=== PATIENT | female | born 1940 | race Caucasian/White ===

== ENCOUNTER 2016-10-21 09:46 | Outpatient (CLI) | payer MEDICARE, OTHER | END 2016-10-21 09:47 | disposition home or self-care (01) | DX: D49.6 Neoplasm of unspecified behavior of brain (principal); Z86.011 Personal history of benign neoplasm of the brain ==

== ENCOUNTER 2016-12-14 11:50 | Outpatient (CLI) | payer MEDICARE, OTHER ==
[2016-12-14 19:44] LABS: ALBUMIN/GLOBULIN RATIO 1.2 (1.0-2.2); BILIRUBIN,TOTAL 0.6 mg/dL (0.2-1.0); BUN - BLOOD UREA NITROGEN 13 mg/dL (6-20); CALCIUM 9.4 mg/dL (8.5-10.3); CARBON DIOXIDE - CO2 26 mmol/L (21-32); CHLORIDE 105 mmol/L (101-111); CHOL/HDL RATIO 3.4 (<4.4); CHOLESTEROL 249 mg/dL; CREATININE 0.8 mg/dL (0.4-1.0); GFR - MDRD 70 (>89); GLUCOSE 98 mg/dL (70-100); HDL CHOLESTEROL 74 mg/dL; LDL/HDL RATIO 2.2 (<4.4); POTASSIUM 4.2 mmol/L (3.5-5.0); SODIUM 139 mmol/L (135-145); TOTAL PROTEIN 7.1 g/dL (6.7-8.2); TRIGLYCERIDES 60 mg/dL; VLDL CHOLESTEROL 12 mg/dL
[2016-12-14 19:52] LABS: BASOPHILS % (AUTO) 0.5 %; EOSINOPHILS % (AUTO) 0.4 %; HCT - HEMATOCRIT 37.3 % (37.0-47.0); HGB - HEMOGLOBIN 12.2 g/dL (12.0-16.0); LYMPHOCYTES # (AUTO) 2.3 10^3/uL (1.5-3.5); LYMPHOCYTES % (AUTO) 31.4 %; MEAN CORPUSCULAR HEMOGLOBIN 29.7 pg (27.0-31.0); MEAN CORPUSCULAR HGB CONC 32.7 g/dL (32.0-36.0); MEAN CORPUSCULAR VOLUME 90.9 fL (81.0-99.0); MEAN PLATELET VOLUME 10.2 fL (7.9-10.8); MONOCYTES # (AUTO) 0.5 10^3/uL (0.0-1.0); MONOCYTES % (AUTO) 7.1 %; NEUTROPHILS # (AUTO) 4.4 10^3/uL (1.5-6.6); NEUTROPHILS % (AUTO) 60.6 %; RED BLOOD COUNT 4.11 10^6/uL (4.20-5.40); RED CELL DISTRIBUTION WIDTH 12.9 % (12.0-15.0); UNCORRECTED WHITE BLOOD COUNT 7.2 x10^3/uL; WHITE BLOOD COUNT 7.2 x10^3/uL (4.8-10.8)
[2016-12-14 20:08] LABS: THYROID STIMULATING HORMONE 1.09 uIU/mL (0.34-5.60)
== END 2016-12-14 23:59 | disposition home or self-care (01) ==
LOC: LAB.WCP 11:50
PROVIDERS: ATTEND Family Medicine
DX: I10 Essential (primary) hypertension (principal); E78.5 Hyperlipidemia, unspecified; E03.9 Hypothyroidism, unspecified
CPT/HCPCS: 36415; 80053; 80061; 84439; 84443; 84481; 85025

== ENCOUNTER 2016-12-16 12:14 | Outpatient (CLI) | payer OTHER ==
--- NOTE | 2016-12-16 20:45 | Ultrasound Report ---
THYROID ULTRASOUND: 12/16/2016 The patient has hypothyroidism and anterior neck pain. TECHNIQUE: Real-time scanning was performed with primary care sales representative static images obtained. FINDINGS: Right lobe of the thyroid measures 3.3 cm x 1.3 cm x 0.9 cm for a volume of 2 mL. Left lo be of the thyroid measures 3.7 cm x 0.9 cm x 1.0 cm for a volume of 1.74 mL. Thyroid isthmus measure s 0.6 cm. Thyroid gland shows no significant abnormality. Thyroid shows no nodules. Thyroid has no rmal vascularity. Its size is slightly smaller than usually noted, but still within normal limits. IMPRESSION: NO SIGNIFICANT ABNORMALITY. JOB #: [id number] EXT JOB #:[id number]
== END 2016-12-16 12:15 | disposition home or self-care (01) ==
LOC: DI 12:14
PROVIDERS: ATTEND Family Medicine
DX: E03.9 Hypothyroidism, unspecified (principal)
CPT/HCPCS: 76536

== ENCOUNTER 2017-10-31 08:00 | Outpatient (CLI) | payer MEDICARE | END 2017-10-31 08:01 | disposition home or self-care (01) | LOC: LAB.WCP 08:00 | PROVIDERS: ATTEND Physician Assistant Medical | DX: J11.89 Influenza due to unidentified influenza virus with other manifestations (principal) | CPT/HCPCS: 87275; 87276 ==

== ENCOUNTER 2017-11-03 14:29 | Outpatient (CLI) | payer MEDICARE ==
--- NOTE | 2017-11-04 09:19 | XRAY Report ---
TWO VIEW CHEST: 11/03/2017 CLINICAL INDICATION: Influenza. COMPARISON: 04/29/2015. FINDINGS: Frontal and lateral views of the chest demonstrate a normal cardiac silhouette. The lungs are clear. No effusion or pneumothorax is present. IMPRESSION: NORMAL CHEST, UNCHANGED. TD: 11/04/2017 09:18
== END 2017-11-03 14:30 | disposition home or self-care (01) ==
LOC: DI 14:29
PROVIDERS: ATTEND Physician Assistant Medical
DX: J11.89 Influenza due to unidentified influenza virus with other manifestations (principal)
CPT/HCPCS: 71046

== ENCOUNTER 2017-12-20 12:44 | Outpatient (CLI) | payer MEDICARE ==
--- NOTE | 2017-12-20 14:38 | XRAY Report ---
THREE VIEW CERVICAL SPINE: 12/20/2017 CLINICAL INDICATION: Chronic neck pain. FINDINGS: AP, lateral, odontoid views of the cervical spine demonstrate degenerative disk disease, worst at C5-6. There is no evidence of acute fracture. The prevertebral soft tissues are unremarkable. IMPRESSION: DEGENERATIVE DISK DISEASE, WORST AT C5-6. TD: 12/20/2017 14:30
--- NOTE | 2017-12-20 14:38 | XRAY Report ---
THREE VIEW BILATERAL KNEES: 12/20/2017 CLINICAL INDICATION: Pain. FINDINGS: AP, lateral, sunrise views of the bilateral knees demonstrate mild bilateral osteoarthritis, with small osteophytes. There is no evidence of fracture or dislocation. A moderate right effusion is present. No left effusion is seen. IMPRESSION: MILD OSTEOARTHRITIS BILATERALLY. MODERATE RIGHT EFFUSION. TD: 12/20/2017 14:31
== END 2017-12-20 12:45 | disposition home or self-care (01) ==
LOC: DI 12:44
PROVIDERS: ATTEND Physician Assistant Medical
DX: M50.30 Other cervical disc degeneration, unspecified cervical region (principal); M17.0 Bilateral primary osteoarthritis of knee; M25.461 Effusion, right knee
CPT/HCPCS: 72040

== ENCOUNTER 2018-02-09 08:16 | Outpatient (CLI) | payer MEDICARE ==
[2018-02-09 08:40] LABS: BASOPHILS % (AUTO) 0.4 %; EOSINOPHILS # (AUTO) 0.1 10^3/uL (0.0-0.7); EOSINOPHILS % (AUTO) 2.2 %; HGB - HEMOGLOBIN 12.8 g/dL (12.0-16.0); LYMPHOCYTES # (AUTO) 2.1 10^3/uL (1.5-3.5); MEAN CORPUSCULAR HEMOGLOBIN 30.5 pg (27.0-31.0); MEAN CORPUSCULAR HGB CONC 33.3 g/dL (32.0-36.0); MEAN CORPUSCULAR VOLUME 91.7 fL (81.0-99.0); MEAN PLATELET VOLUME 9.3 fL (7.9-10.8); MONOCYTES # (AUTO) 0.3 10^3/uL (0.0-1.0); MONOCYTES % (AUTO) 6.5 %; NEUTROPHILS # (AUTO) 2.1 10^3/uL (1.5-6.6); NEUTROPHILS % (AUTO) 44.9 %; PLT - PLATELET COUNT 217 10^3/uL (130-450); RED BLOOD COUNT 4.19 10^6/uL (4.20-5.40); RED CELL DISTRIBUTION WIDTH 12.6 % (12.0-15.0); WHITE BLOOD COUNT 4.7 x10^3/uL (4.8-10.8)
[2018-02-09 09:01] LABS: ALBUMIN 4.2 g/dL (3.2-5.5); ALBUMIN/GLOBULIN RATIO 1.4 (1.0-2.2); ALKALINE PHOSPHATASE 56 IU/L (42-121); ALT ALANINE AMINOTRANSFERASE 21 IU/L (10-60); AST ASPARTATE AMINOTRANSFERASE 22 IU/L (10-42); BILIRUBIN,TOTAL 0.8 mg/dL (0.2-1.0); BUN - BLOOD UREA NITROGEN 18 mg/dL (6-20); CALCIUM 9.3 mg/dL (8.5-10.3); CARBON DIOXIDE - CO2 27 mmol/L (21-32); CHLORIDE 105 mmol/L (101-111); CHOL/HDL RATIO 3.6 (<4.4); CHOLESTEROL 252 mg/dL; CREATININE 0.8 mg/dL (0.4-1.0); GFR - MDRD 70 (>89); GLUCOSE 109 mg/dL (70-100); HDL CHOLESTEROL 70 mg/dL; LDL CHOLESTEROL,CALCULATED 169 mg/dL; LDL/HDL RATIO 2.4 (<4.4); SODIUM 138 mmol/L (135-145); TOTAL PROTEIN 7.2 g/dL (6.7-8.2); VLDL CHOLESTEROL 13 mg/dL
== END 2018-02-09 08:17 | disposition home or self-care (01) ==
LOC: LAB 08:16
PROVIDERS: ATTEND Physician Assistant Medical
DX: E78.5 Hyperlipidemia, unspecified (principal); E03.9 Hypothyroidism, unspecified; I10 Essential (primary) hypertension
CPT/HCPCS: 36415; 80053; 80061; 83721; 84443; 85025

== ENCOUNTER 2018-02-17 07:50 | Outpatient (CLI) | payer MEDICARE ==
--- NOTE | 2018-02-17 19:28 | MRI Report ---
Procedure Date: 02/17/2018 Accession Number: [id number] / [id number] Procedure: MRI - Cervical Spine W/O CPT Code: FULL RESULT: EXAM: MRI CERVICAL SPINE WITHOUT CONTRAST EXAM DATE: 02/17/2018 08:34 AM. CLINICAL HISTORY: Neck pain, chronic. COMPARISONS: Cervical spine 3 views 12/20/2017. TECHNIQUE: Multiplanar, multisequence T1-weighted and fluid-sensitive sequences of the cervical spine without contrast. Other: None. FINDINGS: Alignment: 1. Anterolisthesis 3 mm C4 on C5. 2. Retrolisthesis 3 mm C5 on C6. Neurologic Structures: The visualized posterior fossa structures are unremarkable. No signal abnormality in the visualized spinal cord. Bone Marrow: No gross fractures or bone lesions. No marrow edema. Interspace Levels/Facets: C1-C2: Severe right C1-C2 apophyseal joint arthrosis. C2-C3: Interbody fusion. Facet joint ankylosis. Negative for spinal canal stenosis or foraminal stenosis. C3-C4: Severe bilateral facet joint arthrosis. Severe left foraminal stenosis from facet hypertrophic spurring. Mild right foraminal stenosis from facet hypertrophy. C4-C5: Mild disk degeneration. Severe bilateral facet joint arthrosis. Negative for left foraminal stenosis. Mild right foraminal stenosis from facet hypertrophy. C5-C6: Retrolisthesis 3 mm C5 on C6. Posterior 2 mm disk protrusion. Ligamentum flavum thickening. Central AP spinal canal diameter is 7 mm. There is a mild to moderate central spinal canal stenosis. Severe left foraminal stenosis from Luschka joint hypertrophic spurring. Severe right foraminal stenosis from foraminal 3 mm disk protrusion osteophyte complex. C6-C7: Severe bilateral facet joint arthrosis. The left neural foramen is negative for stenosis. Moderate right foraminal stenosis from anterolisthesis and facet degenerative hypertrophy. C7-T1: Right facet joint ankylosis. Mild left facet joint arthrosis. The intervertebral foramina are negative for stenosis. T1-T2: Severe disk degeneration. Schmorl's node inferior T1 vertebral body endplate. Moderate to severe left foraminal stenosis from facet hypertrophy and disk degeneration. Moderate right foraminal stenosis from spondylosis. Posterior 2 mm disk protrusion. Musculature: Normal. No edema or fatty atrophy. Other: The paravertebral and prevertebral soft tissues are normal. IMPRESSION: 1. Severe right C2-C3 facet joint arthrosis. 2. The spinal cord from the cervicomedullary junction to T3 is negative for signal abnormality. 3. Mild to moderate central spinal canal stenosis from 3 mm retrolisthesis C5 on C6, 2 mm posterior disk protrusion and ligamentum flavum thickening. 4. Severe left foraminal stenosis from Luschka joint hypertrophic spurring and severe right foraminal stenosis from 3 mm foraminal disk protrusion osteophyte complex. 5. Severe left foraminal stenosis C3-C4 from facet hypertrophic spurring. 6. Moderate to severe left and moderate right T1-T2 foraminal stenosis from spondylosis. 7. Anterolisthesis 3 mm C4 on C5. RADIA
== END 2018-02-17 07:51 | disposition home or self-care (01) ==
LOC: DI 07:50
PROVIDERS: ATTEND Physician Assistant Medical
DX: M47.892 Other spondylosis, cervical region (principal); M43.22 Fusion of spine, cervical region; M50.321 Other cervical disc degeneration at C4-C5 level; M50.222 Other cervical disc displacement at C5-C6 level; M51.34 Other intervertebral disc degeneration, thoracic region; M51.24 Other intervertebral disc displacement, thoracic region; M48.02 Spinal stenosis, cervical region; M43.12 Spondylolisthesis, cervical region
CPT/HCPCS: 72141

== ENCOUNTER 2018-02-21 15:21 | Outpatient (CLI) | payer MEDICARE ==
--- NOTE | 2018-02-22 13:14 | Ultrasound Report ---
Procedure Date: 02/21/2018 Accession Number: [id number] / [id number] Procedure: US - Carotid Doppler Complete CPT Code: FULL RESULT: EXAM: BILATERAL CAROTID AND VERTEBRAL ARTERY DUPLEX DOPPLER ULTRASOUND: EXAM DATE: 02/21/2018 04:48 PM CLINICAL HISTORY: Carotid artery stenosis. COMPARISON: Carotid ultrasound 07/20/2010 performed for abnormal life scan. TECHNIQUE: Grayscale imaging, color Doppler, and duplex spectral Doppler were used to evaluate the carotid and vertebral arteries bilaterally. Static images were obtained. FINDINGS: No significant plaque is identified in the right or left common or internal carotid arteries. Normal antegrade flow is present in bilateral vertebral arteries. VELOCITIES (cm/sec): Right: CCA Prox: PSV 54 cm/sec. CCA Dist: PSV 48 cm/sec, EDV 17 cm/sec. ECA: PSV 48 cm/sec. Bulb: PSV 39 cm/sec, EDV 12 cm/sec, ICA/CCA ratio 0.81. ICA Prox: PSV 64 cm/sec, EDV 20 cm/sec, ICA/CCA ratio 1.33. ICA Mid: PSV 89 cm/sec, EDV 26 cm/sec, ICA/CCA ratio 1.85. ICA Dist: PSV 116 cm/sec, EDV 30 cm/sec, ICA/CCA ratio 2.42. Vertebral Artery: PSV 37 cm/sec. RVA flow direction: Antegrade. Left: CCA Prox: PSV 95 cm/sec. CCA Dist: PSV 59 cm/sec, EDV 18 cm/sec. ECA: PSV 62 cm/sec. Bulb: PSV 51 cm/sec, EDV 17 cm/sec, ICA/CCA ratio 0.86. ICA Prox: PSV 80 cm/sec, EDV 33 cm/sec, ICA/CCA ratio 1.36. ICA Mid: PSV 167 cm/sec, EDV 40 cm/sec, ICA/CCA ratio 2.83. ICA Dist: PSV 90 cm/sec, EDV 26 cm/sec, ICA/CCA ratio 1.53. Vertebral Artery: PSV 42 cm/sec. RVA flow direction: Antegrade. ICA diameter stenosis: Right: <50% by velocity and <70% by NASCET criteria. Left: <50% by velocity and <70% by NASCET criteria. IMPRESSION: 1. No significant bilateral carotid artery plaquing. 2. In the right carotid artery there are no elevated carotid artery velocities to suggest hemodynamically significant stenosis. 3. Left mid ICA peak systolic velocity 167 cm/sec can be seen with 50% to 69% stenosis; however, no significant plaque was demonstrated on grayscale images. This velocity may be related to tortuosity, rather than stenosis. 4. Normal antegrade flow is present in bilateral vertebral arteries. General Recommendations: Stenosis =50% ICA - Follow-up ultrasound 6-12 months Stenosis <50% ICA - High Risk Patient with plaque - Follow-up ultrasound 1-2 years Normal Study but High Risk Patient - Follow-up ultrasound 3-5 years Management recommendations and diagnostic criteria are based on current IAC endorsed standards in Carotid Artery Stenosis: Grayscale and Doppler Ultrasound Diagnosis. Validated velocity measurements with angiographic measurements and velocity criteria are extrapolated from diameter data as defined by the Society of Radiologists in Ultrasound Consensus Conference Radiology 2003; 229;340-346. RADIA
== END 2018-02-21 15:22 | disposition home or self-care (01) ==
LOC: DI 15:21
PROVIDERS: ATTEND Physician Assistant Medical
DX: I65.29 Occlusion and stenosis of unspecified carotid artery (principal)
CPT/HCPCS: 93880

== ENCOUNTER 2018-08-31 08:26 | Outpatient (CLI) | payer MEDICARE ==
[2018-08-31 08:41] LABS: BASOPHILS % (AUTO) 0.6 %; EOSINOPHILS # (AUTO) 0.1 10^3/uL (0.0-0.7); EOSINOPHILS % (AUTO) 1.9 %; HGB - HEMOGLOBIN 13.1 g/dL (12.0-16.0); LYMPHOCYTES % (AUTO) 38.8 %; MEAN CORPUSCULAR HEMOGLOBIN 30.8 pg (27.0-31.0); MEAN CORPUSCULAR HGB CONC 34.4 g/dL (32.0-36.0); MEAN CORPUSCULAR VOLUME 89.6 fL (81.0-99.0); MEAN PLATELET VOLUME 8.7 fL (7.9-10.8); MONOCYTES # (AUTO) 0.4 10^3/uL (0.0-1.0); MONOCYTES % (AUTO) 7.5 %; NEUTROPHILS # (AUTO) 2.7 10^3/uL (1.5-6.6); NEUTROPHILS % (AUTO) 51.2 %; PLT - PLATELET COUNT 207 10^3/uL (130-450); RED BLOOD COUNT 4.24 10^6/uL (4.20-5.40); RED CELL DISTRIBUTION WIDTH 13.2 % (12.0-15.0); WHITE BLOOD COUNT 5.2 x10^3/uL (4.8-10.8)
[2018-08-31 09:03] LABS: ALBUMIN 4.2 g/dL (3.2-5.5); ALBUMIN/GLOBULIN RATIO 1.3 (1.0-2.2); ALKALINE PHOSPHATASE 59 IU/L (42-121); ALT ALANINE AMINOTRANSFERASE 22 IU/L (10-60); AST ASPARTATE AMINOTRANSFERASE 22 IU/L (10-42); BILIRUBIN,TOTAL 0.7 mg/dL (0.2-1.0); BUN - BLOOD UREA NITROGEN 16 mg/dL (6-20); CALCIUM 9.5 mg/dL (8.5-10.3); CARBON DIOXIDE - CO2 29 mmol/L (21-32); CHLORIDE 105 mmol/L (101-111); CHOL/HDL RATIO 3.2 (<4.4); CHOLESTEROL 262 mg/dL; CREATININE 0.7 mg/dL (0.4-1.0); GFR - MDRD 81 (>89); GLUCOSE 109 mg/dL (70-100); HDL CHOLESTEROL 81 mg/dL; LDL CHOLESTEROL,CALCULATED 171 mg/dL; LDL/HDL RATIO 2.1 (<4.4); SODIUM 142 mmol/L (135-145); TOTAL PROTEIN 7.4 g/dL (6.7-8.2); VLDL CHOLESTEROL 10 mg/dL
== END 2018-08-31 08:27 | disposition home or self-care (01) ==
LOC: LAB 08:26
PROVIDERS: ATTEND Physician Assistant Medical
DX: E78.5 Hyperlipidemia, unspecified (principal); E03.9 Hypothyroidism, unspecified; K21.9 Gastro-esophageal reflux disease without esophagitis
CPT/HCPCS: 36415; 80053; 80061; 83721; 84443; 85025

== ENCOUNTER 2019-04-11 15:48 | Outpatient (CLI) | payer MEDICARE ==
--- NOTE | 2019-04-12 09:50 | MRI Report ---
Reason: DEGENERATIVE DISC DISEASE CERVICAL SPINE Procedure Date: 04/11/2019 Accession Number: [id number] / [id number] Procedure: MRI - Cervical Spine W/O CPT Code: FULL RESULT: EXAM: MRI CERVICAL SPINE WITHOUT CONTRAST EXAM DATE: 04/11/2019 04:27 PM. CLINICAL HISTORY: 79-year-old female. DEGENERATIVE DISC DISEASE CERVICAL SPINE. COMPARISONS: MR cervical spine 02/17/2018 TECHNIQUE: Multiplanar, multisequence T1-weighted and fluid-sensitive sequences of the cervical spine without contrast. Other: None. FINDINGS: Neurologic Structures: The visualized posterior fossa structures are unremarkable. No signal abnormality in the visualized spinal cord. Alignment: Grade 1 anterolisthesis C4 on C5 measuring 4 mm. Grade 1 retrolisthesis C5 on C6 measuring 5 mm. Grade 1 anterolisthesis C6 on C7 measuring 2 mm. Bone Marrow: No gross fractures or bone lesions. No marrow edema. Interspace Levels/Facets: C1-C2: Moderate degenerative changes of the atlantodental joint, including likely a pseudo-pannus. No significant narrowing. C2-C3: Interbody fusion and facet joint ankylosis. No significant central canal or foraminal narrowing. C3-C4: Moderate bilateral facet arthropathy. No significant central canal narrowing. Moderate to severe left and mild right foraminal narrowing. No significant interval progression. C4-C5: Small posterior disk osteophyte complex. Moderate bilateral facet arthropathy. No central canal narrowing. Mild right foraminal narrowing. No left foraminal narrowing. No interval progression. C5-C6: Moderate to severe describe loss and desiccation. Large posterior disk osteophyte complex. Severe bilateral uncovertebral spurring. Mild bilateral facet arthropathy. Moderate to severe central canal narrowing, similar to prior. Severe left and moderate to severe right foraminal narrowing. No interval progression. C6-C7: Small posterior disk osteophyte complex. Moderate bilateral facet arthropathy. Mild central canal narrowing. No foraminal narrowing. No interval progression. C7-T1: Unremarkable. Musculature: Normal. No edema or fatty atrophy. Other: The paravertebral and prevertebral soft tissues are normal. IMPRESSION: 1. Moderate to severe multilevel degenerative spondylosis, as detailed above and summarized below, with no significant interval progression since the prior MRI dated 02/17/2018. No evidence of acute fracture or traumatic subluxation. No cord signal abnormality. 2. C3-C4: No significant central canal narrowing. Moderate to severe left and mild right foraminal narrowing. No significant interval progression. Recommend correlation for left C4 radicular symptoms. 3. C4-C5: No central canal narrowing. Mild right foraminal narrowing. No left foraminal narrowing. No interval progression. 4. C5-C6: Moderate to severe central canal narrowing, similar to prior. Severe left and moderate to severe right foraminal narrowing. No interval progression. Recommend correlation for left greater than right C6 radicular symptoms. 5. C6-C7: Mild central canal narrowing. No foraminal narrowing. No interval progression. RADIA
== END 2019-04-11 15:49 | disposition home or self-care (01) ==
LOC: DI 15:48
PROVIDERS: ATTEND Physician Assistant Medical
DX: M50.322 Other cervical disc degeneration at C5-C6 level (principal); M47.812 Spondylosis without myelopathy or radiculopathy, cervical region; M48.02 Spinal stenosis, cervical region
CPT/HCPCS: 72141

== ENCOUNTER 2019-04-28 13:50 | Emergency (ER) | payer MEDICARE ==
--- NOTE | 2019-04-28 15:32 | ED Physician Documentation ---
History of Present Illness - Stated complaint Stated Complaint: Choking/food feeling stuck - Chief complaint Chief Complaint: Resp - History obtained from History obtained from: Patient - History of Present Illness Pain level max: 0 Pain level now: 0 - Additonal information Additional information: 79-year-old female states that it feels like there is a shelf on the left side of her throat. She states that for the past 6 months she has had in her mid episodes on food. This is happened 4-5 times. She has not talked to her doctor about this. Worse with eating. Nothing makes it better. Is not particularly worse today. She states she had a normal EGD and colonoscopy 6 years ago Review of Systems Constitutional: denies: Fever GI: denies: Vomiting, Diarrhea Skin: denies: Rash Musculoskeletal: denies: Neck pain, Back pain PD PAST MEDICAL HISTORY - Past Medical History Past Medical History: Yes Endocrine/Autoimmune: HyPOthyroidism - Past Surgical History Past Surgical History: Yes General: Appendectomy /RN PRIMARY CARE: Hysterectomy, Oophrectomy Neuro: Craniotomy HEENT: Tonsil/Adenoidectomy - Present Medications Home Medications: Ambulatory Orders Medication Instructions Recorded Confirmed Levothyroxine [Synthroid] 75 mcg PO DAILY 01/18/14 10/16/14 - Allergies Allergies/Adverse Reactions: Allergies Allergy/AdvReac Type Severity Reaction Status Date / Time No Known Drug Allergies Allergy Verified 01/18/14 15:24 - Social History Does the pt smoke?: No Smoking Status: Never smoker Does the pt drink ETOH?: No Does the pt have substance abuse?: No - Immunizations Immunizations are current?: Yes - POLST Patient has POLST: No PD ED PE NORMAL - Vitals Vital signs reviewed: Yes - General General: Alert and oriented X 3, No acute distress - HEENT HEENT: PERRL, Ears normal, Moist mucous membranes, Pharynx benign - Neck Neck: Supple, no meningeal sign - Cardiac Cardiac: RRR, Strong equal pulses - Respiratory Respiratory: No respiratory distress, Clear bilaterally - Abdomen Abdomen: Soft, Non tender, Non distended - Derm Derm: Warm and dry - Neuro Neuro: Alert and oriented X 3 - Psych Psych: Normal mood, Normal affect Results - Vitals Vitals: Vital Signs - 24 hr 04/28/19 13:58 Temperature 37.0 C Heart Rate 81 Respiratory 20 Rate Blood Pressure 155/71 H O2 Saturation 97 Oxygen O2 Source Room air PD MEDICAL DECISION MAKING - ED course Complexity details: considered differential, d/w patient ED course: Normal examination today. Possible Schatzki's rings? Possible outpouching near the vallecula? We will have her follow-up with her doctor for referral for EGD. Patient counseled regarding signs and symptoms for which I believe and urgent re-evaluation would be necessary. Patient with good understanding of and agreement to plan and is comfortable going home at this time This document was made in part using voice recognition software. While efforts are made to proofread this document, sound alike and grammatical errors may occur. Departure - Departure Disposition: 01 Home, Self Care Clinical Impression: Choking due to food in larynx Qualifiers: Encounter type: initial encounter Qualified Code(s): T17.320A - Food in larynx causing asphyxiation, initial encounter Condition: Good Instructions: ED Choking Spell Follow-Up: Analia Rivera PA-C [Primary Care Provider] - Within 1 week Comments: Follow-up with Lexi Rivera for referral to GI or general surgery for an endoscopy. You should have them look at your posterior oropharynx and esophagus. It is possible that you have rings that are causing you to have difficulty swallowing or outpouchings. Return if you worsen.
[2019-04-28 15:42] VITALS: BP 161/92
== END 2019-04-28 15:58 | disposition home or self-care (01) ==
LOC: ED 13:50
DX: T17.320A Food in larynx causing asphyxiation, initial encounter (principal); X58.XXXA Exposure to other specified factors, initial encounter
CPT/HCPCS: 99282; 99283

== ENCOUNTER 2019-05-04 11:47 | Outpatient (CLI) | payer MEDICARE ==
[2019-05-04 12:31] LABS: CREATININE 0.6 mg/dL (0.4-1.0)
[2019-05-04] MEDS ORDERED: IOVERSOL 320 100 ML VIAL IVP ONE ×2 (12:43→13:12)
--- NOTE | 2019-05-04 13:45 | CT Report ---
Reason: DYSPHAGIA,VOICE CHANGES Procedure Date: 05/04/2019 Accession Number: [id number] / [id number] Procedure: CT - SOFT TISSUE NECK W CPT Code: FULL RESULT: EXAM: CT SOFT TISSUE NECK WITH CONTRAST. EXAM DATE: 05/04/2019 12:54 PM. HISTORY: Dysphagia, voice changes. COMPARISONS: Accompanied CT study chest, plain film series soft tissue neck ; prior MRI cervical spine done 04/11/2019. TECHNIQUE: Routine soft tissue neck CT protocol with contrast. Reconstructions: Coronal and sagittal. IV contrast: 80 cc Optiray 320. In accordance with CT protocol optimization, one or more of the following dose reduction techniques were utilized for this exam: automated exposure control, adjustment of mA and/or KV based on patient size, or use of iterative reconstructive technique. Findings: Relevant images are indicated (image number, series number). Limited evaluation intrarenal contents are unremarkable, basal cisterns are patent. Orbital contents negative. Patient partially edentulous. Apical cyst present left mandible first molar (18, 14). Paranasal sinuses, mastoid air cells appear clear. Skull base intact. Suprahyoid neck: No suspicious mass, fluid collection, no suspicious adenopathy. Airway patent, epiglottis negative, oral cavity unremarkable, partly degraded by dental artifact. Infrahyoid neck: No suspicious mass, fluid collection, no suspicious adenopathy. Pyriform sinuses are clear, aryepiglottic folds, vestibule appear unremarkable. Thyroid not enlarged, airway patent. Limited superior mediastinum unremarkable. Limited evaluation lung apices are unremarkable. Advanced focal cervical spondylosis C4-C5, worse at the C5-C6 level. No suspicious bony lesions. Impressions: 1. No suspicious mass, fluid collection, no suspicious adenopathy of the neck. 2. Advanced focal cervical spondylosis worse at the C5-C6 level. 3. Apical cyst first molar left mandible. RADIA The call report notification system was initiated by Dr. Hilario Sánchez at 01:43 PM on 05/04/2019.
--- NOTE | 2019-05-04 13:49 | CT Report ---
Reason: DYSPHAGIA,VOICE CHANGES Procedure Date: 05/04/2019 Accession Number: [id number] / [id number] Procedure: CT - CHEST W CPT Code: FULL RESULT: EXAM: CT CHEST EXAM DATE: 05/04/2019 01:10 PM. CLINICAL HISTORY: DYSPHAGIA,VOICE CHANGES. COMPARISONS: None. TECHNIQUE: Routine helical CT imaging was performed through the chest. IV contrast: 80 cc Optiray 320. Reconstructions: Coronal and sagittal. In accordance with CT protocol optimization, one or more of the following dose reduction techniques were utilized for this exam: automated exposure control, adjustment of mA and/or KV based on patient size, or use of iterative reconstructive technique. FINDINGS: Lungs/Pleura: Right apical groundglass nodule measuring 3 mm on series 4 image 60. Fine nodularity generally. Mild bronchiectasis. No suspicious lesion, consolidation, effusion, or pneumothorax. Mediastinum: Normal heart size. Small pericardial effusion measuring about 6 mm. Mild prominence of ascending thoracic aorta measuring 3.6 cm. At least one vessel coronary artery calcifications. No lymphadenopathy. Bones: Unremarkable. Visualized Abdomen: Unremarkable. Other: None. IMPRESSION: 1. Tiny right apical groundglass nodule; further follow-up not indicated radiographically, per Fleischner Society guidelines. 2. Mild bronchiectasis. 3. Small pericardial effusion and other chronic or incidental findings. RADIA The call report notification system was initiated by Dr. Murtaza Sierra at 01:39 PM on 05/04/2019. The above call report findings were discussed with Dr. Catalan by Dr. Murtaza Sierra at 01:48 PM on 05/04/2019.
== END 2019-05-04 11:48 | disposition home or self-care (01) ==
LOC: LAB 11:47 → DI 11:48
PROVIDERS: ATTEND Surgery
DX: R13.10 Dysphagia, unspecified (principal); R49.9 Unspecified voice and resonance disorder; K04.8 Radicular cyst; M47.812 Spondylosis without myelopathy or radiculopathy, cervical region; I31.3 Pericardial effusion (noninflammatory); J47.9 Bronchiectasis, uncomplicated
CPT/HCPCS: 36415; 70491; 71260; 82565; Q9967

== ENCOUNTER 2019-05-16 07:41 | Outpatient (CLI) | payer MEDICARE | END 2019-05-16 07:42 | disposition home or self-care (01) | LOC: DI 07:41 | PROVIDERS: ATTEND Physician Assistant Medical | DX: I31.3 Pericardial effusion (noninflammatory) (principal); I35.1 Nonrheumatic aortic (valve) insufficiency | CPT/HCPCS: 93306 ==

== ENCOUNTER 2019-05-31 08:34 | Outpatient (CLI) | payer MEDICARE ==
[2019-05-31 09:20] LABS: ALBUMIN/GLOBULIN RATIO 1.2 (1.0-2.2); ALKALINE PHOSPHATASE 57 IU/L (42-121); ALT ALANINE AMINOTRANSFERASE 21 IU/L (10-60); AST ASPARTATE AMINOTRANSFERASE 21 IU/L (10-42); BILIRUBIN,TOTAL 0.8 mg/dL (0.2-1.0); BUN - BLOOD UREA NITROGEN 15 mg/dL (6-20); CALCIUM 9.2 mg/dL (8.5-10.3); CARBON DIOXIDE - CO2 28 mmol/L (21-32); CHLORIDE 105 mmol/L (101-111); CHOL/HDL RATIO 3.6 (<4.4); CHOLESTEROL 264 mg/dL; CREATININE 0.7 mg/dL (0.4-1.0); GFR - MDRD 81 (>89); GLUCOSE 107 mg/dL (70-100); HDL CHOLESTEROL 73 mg/dL; LDL CHOLESTEROL,CALCULATED 181 mg/dL; LDL/HDL RATIO 2.5 (<4.4); SODIUM 139 mmol/L (135-145); TOTAL PROTEIN 7.3 g/dL (6.7-8.2); VLDL CHOLESTEROL 10 mg/dL
== END 2019-05-31 08:35 | disposition home or self-care (01) ==
LOC: LAB 08:34
PROVIDERS: ATTEND Physician Assistant Medical
DX: Z79.899 Other long term (current) drug therapy (principal); E78.5 Hyperlipidemia, unspecified
CPT/HCPCS: 36415; 80053; 80061; 83721

== ENCOUNTER 2019-06-06 07:37 | Day surgery (SDC) | payer MEDICARE ==
[2019-06-06] MEDS ORDERED: fentaNYL 100 MCG/2 ML VIAL IVP ONE (07:38)
[2019-06-06] MEDS ORDERED: MIDAZOLAM 2 MG/2 ML VIAL IVP ONE (07:38)
[2019-06-06] MEDS ORDERED: SCOPOLAMINE PATCH TOP ONE (08:08)
[2019-06-06] MEDS ORDERED: LACTATED RINGERS 1,000 ML IV ONE ×2 (08:11→10:21)
[2019-06-06] MEDS ORDERED: LIDO GARGLE 30 ML BOTTLE ONE (09:28)
[2019-06-06 10:48] VITALS: BP 154/82
== END 2019-06-06 07:38 | disposition home or self-care (01) ==
LOC: SDS 07:37
PROVIDERS: ATTEND Surgery
PROC: 0DB78ZX Excision of Stomach, Pylorus, Via Natural or Artificial Opening Endoscopic, Diagnostic (ICD-10-PCS; 2019-06-06)
PROC: 0DB58ZX Excision of Esophagus, Via Natural or Artificial Opening Endoscopic, Diagnostic (ICD-10-PCS; 2019-06-06)
PROC: 0DB98ZX Excision of Duodenum, Via Natural or Artificial Opening Endoscopic, Diagnostic (ICD-10-PCS; principal; 2019-06-06 09:00)
DX: R13.10 Dysphagia, unspecified (principal); K21.9 Gastro-esophageal reflux disease without esophagitis; K29.50 Unspecified chronic gastritis without bleeding; K44.9 Diaphragmatic hernia without obstruction or gangrene; K22.9 Disease of esophagus, unspecified; I10 Essential (primary) hypertension; I73.9 Peripheral vascular disease, unspecified
CPT/HCPCS: 43239; 88305; A9270; J3490; J7120

== ENCOUNTER 2019-11-22 07:53 | Outpatient (CLI) | payer MEDICARE ==
[2019-11-22 08:08] LABS: BASOPHILS % (AUTO) 0.6 %; EOSINOPHILS # (AUTO) 0.1 10^3/uL (0.0-0.7); EOSINOPHILS % (AUTO) 2.6 %; HGB - HEMOGLOBIN 12.5 g/dL (12.0-16.0); LYMPHOCYTES # (AUTO) 2.6 10^3/uL (1.5-3.5); LYMPHOCYTES % (AUTO) 51.1 %; MEAN CORPUSCULAR HEMOGLOBIN 30.4 pg (27.0-31.0); MEAN CORPUSCULAR VOLUME 92.2 fL (81.0-99.0); MEAN PLATELET VOLUME 10.6 fL (7.9-10.8); MONOCYTES # (AUTO) 0.4 10^3/uL (0.0-1.0); MONOCYTES % (AUTO) 7.8 %; NEUTROPHILS # (AUTO) 1.9 10^3/uL (1.5-6.6); NEUTROPHILS % (AUTO) 37.7 %; PLT - PLATELET COUNT 194 10^3/uL (130-450); RED BLOOD COUNT 4.11 10^6/uL (4.20-5.40); RED CELL DISTRIBUTION WIDTH 12.6 % (12.0-15.0)
[2019-11-22 08:28] LABS: ALBUMIN 4.2 g/dL (3.2-5.5); ALBUMIN/GLOBULIN RATIO 1.4 (1.0-2.2); ALKALINE PHOSPHATASE 67 IU/L (42-121); ALT ALANINE AMINOTRANSFERASE 21 IU/L (10-60); AST ASPARTATE AMINOTRANSFERASE 22 IU/L (10-42); BILIRUBIN,TOTAL 0.4 mg/dL (0.2-1.0); BUN - BLOOD UREA NITROGEN 20 mg/dL (6-20); CALCIUM 9.4 mg/dL (8.5-10.3); CARBON DIOXIDE - CO2 28 mmol/L (21-32); CHLORIDE 106 mmol/L (101-111); CHOL/HDL RATIO 3.9 (<4.4); CHOLESTEROL 276 mg/dL; CREATININE 0.7 mg/dL (0.4-1.0); GLUCOSE 111 mg/dL (70-100); HDL CHOLESTEROL 70 mg/dL; LDL CHOLESTEROL,CALCULATED 197 mg/dL; LDL/HDL RATIO 2.8 (<4.4); SODIUM 141 mmol/L (135-145); TOTAL PROTEIN 7.2 g/dL (6.7-8.2); VLDL CHOLESTEROL 9 mg/dL
[2019-11-22 08:39] LABS: THYROID STIMULATING HORMONE 1.85 uIU/mL (0.34-5.60)
== END 2019-11-22 07:54 | disposition home or self-care (01) ==
LOC: LAB 07:53
PROVIDERS: ATTEND Internal Medicine
DX: R42 Dizziness and giddiness (principal); Z13.6 Encounter for screening for cardiovascular disorders; Z79.899 Other long term (current) drug therapy; E78.5 Hyperlipidemia, unspecified; E03.9 Hypothyroidism, unspecified; R26.89 Other abnormalities of gait and mobility
CPT/HCPCS: 36415; 80053; 80061; 82607; 83721; 84443; 85025

== ENCOUNTER 2020-03-06 17:45 | Emergency (ER) | payer MEDICARE ==
--- NOTE | 2020-03-06 18:00 | ED Physician Documentation ---
PD HPI CHEST PAIN - Stated complaint Stated Complaint: CP/FAST HEART RATE - Chief complaint Chief Complaint: Cardiac - History obtained from History obtained from: Patient - History of Present Illness Timing - onset: Today Timing - onset during: Rest Timing - duration: Hours (few) Timing - details: Gradual onset, Waxing and waning (feeling like heart rhythm is skipping and surging. No dyspnea.) Quality: No: Pressure, Tightness, Sharp Worsened by: No: Inspiration, Movement Associated symptoms: Palpitations. No: Shortness of air, Nausea, Feeling faint / dizzy Similar symptoms before: Has not had sx before Recently seen: Not recently seen Review of Systems Constitutional: denies: Fever, Chills Nose: denies: Rhinorrhea / runny nose, Congestion Throat: denies: Sore throat Respiratory: denies: Cough GI: denies: Abdominal Pain, Vomiting, Diarrhea Skin: denies: Rash, Lesions Musculoskeletal: denies: Extremity swelling Neurologic: denies: Generalized weakness, Near syncope PD PAST MEDICAL HISTORY - Past Medical History Cardiovascular: Valve disorder, Other Respiratory: Other Endocrine/Autoimmune: HyPOthyroidism GI: None : None HEENT: None Psych: None Musculoskeletal: Osteoarthritis, Other Derm: None - Past Surgical History Past Surgical History: Yes General: Appendectomy Ortho: Other /[employer]BER: Hysterectomy, Oophrectomy Neuro: Craniotomy HEENT: Tonsil/Adenoidectomy - Present Medications Home Medications: Ambulatory Orders Medication Instructions Recorded Confirmed Levothyroxine [Synthroid] 75 mcg PO DAILY 01/18/14 06/06/19 Naproxen Sodium [Aleve] 220 mg PO DAILY PRN 06/05/19 06/05/19 Potassium Chloride 10 meq PO DAILY #20 tablet.er 03/06/20 - Allergies Allergies/Adverse Reactions: Allergies Allergy/AdvReac Type Severity Reaction Status Date / Time hydrochlorothiazide Allergy Unknown Verified 03/06/20 17:59 penicillin V Allergy Unknown Verified 03/06/20 17:59 dust mites Allergy Unknown Uncoded 03/06/20 17:59 grassess,hay, wheat Allergy Unknown Uncoded 03/06/20 17:59 molds Allergy Unknown Uncoded 03/06/20 17:59 pet dander Allergy Unknown Uncoded 03/06/20 17:59 - Social History Does the pt smoke?: No Smoking Status: Never smoker Does the pt drink ETOH?: No Does the pt have substance abuse?: No - Immunizations Immunizations are current?: Yes - POLST Patient has POLST: No PD ED PE NORMAL - Vitals Vital signs reviewed: Yes - General General: Alert and oriented X 3, No acute distress (but somewhat anxious), Well developed/nourished - HEENT HEENT: Pharynx benign - Neck Neck: Supple, no meningeal sign, No adenopathy - Cardiac Cardiac: RRR, Other (1/6 murmur left chest radiating to back. ) - Respiratory Respiratory: Clear bilaterally - Abdomen Abdomen: Soft, Non tender - Derm Derm: Normal color, Warm and dry - Extremities Extremities: No deformity, No tenderness to palpate, No edema, No calf tenderness / cord - Neuro Neuro: Alert and oriented X 3, No motor deficit, Normal speech Results - Vitals Vitals: Vital Signs - 24 hr 03/06/20 03/06/20 03/06/20 17:55 18:44 19:02 Temperature 36.9 C Heart Rate 90 74 71 Respiratory 20 16 18 Rate Blood Pressure 168/102 H 158/66 H 179/66 H O2 Saturation 97 98 100 03/06/20 19:30 Temperature Heart Rate 75 Respiratory 16 Rate Blood Pressure 180/68 H O2 Saturation 99 Oxygen O2 Source Room air - EKG (time done) 17:55 Rate: Rate (enter#) (86) Rhythm: NSR, Other (frequent PVCs) Intervals: Normal NM QRS: Normal Ischemia: Normal ST segments. No: ST elevation c/w ischemia, ST depression - Labs Labs: Laboratory Tests 03/06/20 03/06/20 03/06/20 18:00 18:00 18:00 WBC 7.1 RBC 4.02 L Hgb 12.5 Hct 36.9 L MCV 91.8 MCH 31.1 H MCHC 33.9 RDW 12.4 Plt Count 213 MPV 10.6 Neut # (Auto) 3.4 Lymph # (Auto) 3.2 [place] # (Auto) 0.4 Eos # (Auto) 0.1 Baso # (Auto) 0.0 Absolute Nucleated RBC 0.00 Nucleated RBC % 0.0 Sodium 140 Potassium 3.8 Chloride 101 Carbon Dioxide 28 Anion Gap 11.0 BUN 17 Creatinine 0.9 Estimated GFR (MDRD) 60 L Glucose 138 H Calcium 9.8 Magnesium Total Bilirubin 0.5 AST 36 ALT 19 Alkaline Phosphatase 65 Troponin I High Sens 4.4 Total Protein 7.5 Albumin 4.2 Globulin 3.3 Albumin/Globulin Ratio 1.3 Lipase 45 TSH Free T4 Free T3 pg/mL 03/06/20 03/06/20 03/06/20 18:00 18:00 18:00 WBC RBC Hgb Hct MCV MCH MCHC RDW Plt Count MPV Neut # (Auto) Lymph # (Auto) [place] # (Auto) Eos # (Auto) Baso # (Auto) Absolute Nucleated RBC Nucleated RBC % Sodium Potassium Chloride Carbon Dioxide Anion Gap BUN Creatinine Estimated GFR (MDRD) Glucose Calcium Magnesium 2.2 Total Bilirubin AST ALT Alkaline Phosphatase Troponin I High Sens Total Protein Albumin Globulin Albumin/Globulin Ratio Lipase TSH < 0.08 L Free T4 1.26 Free T3 pg/mL 3.44 - Rads (name of study) chest xray Radiology: Prelim report reviewed (no acute), See rad report PD MEDICAL DECISION MAKING - ED course Complexity details: considered differential (has feeling of irregularity of heart rhythm, no pain nor dyspnea.), d/w patient Departure - Departure Disposition: 01 Home, Self Care Clinical Impression: PVC's (premature ventricular contractions) Condition: Stable Record reviewed to determine appropriate education?: Yes Instructions: ED Palpitations Follow-Up: Cristina Canela MD [Primary Care Provider] - Prescriptions: Potassium Chloride 10 meq PO DAILY #20 tablet.er Comments: You are having extra beats called PVCs which in and of themselves are benign. They can feel annoying. PVCs are sometimes indicative of metabolic irritation such as electrolyte abnormality, thyroid abnormalities, or just general stress/adrenaline. We can add a potassium supplement to raise your potassium level 2 more solidly in the middle of the normal range. Stay well-hydrated. Otherwise the poor sleep and the stress of the noise etc. at your apartment building are likely contributing as well. Have your primary care follow-up on the thyroid test results to see if your current dose is appropriate. Follow-up with your primary care also if the degree of the palpitations continues symptomatically enough. Discharge Date/Time: 03/06/20 19:37
[2020-03-06 18:05] LABS: BASOPHILS % (AUTO) 0.3 %; EOSINOPHILS # (AUTO) 0.1 10^3/uL (0.0-0.7); HGB - HEMOGLOBIN 12.5 g/dL (12.0-16.0); LYMPHOCYTES # (AUTO) 3.2 10^3/uL (1.5-3.5); LYMPHOCYTES % (AUTO) 45.2 %; MEAN CORPUSCULAR HEMOGLOBIN 31.1 pg (27.0-31.0); MEAN CORPUSCULAR HGB CONC 33.9 g/dL (32.0-36.0); MEAN CORPUSCULAR VOLUME 91.8 fL (81.0-99.0); MEAN PLATELET VOLUME 10.6 fL (7.9-10.8); MONOCYTES # (AUTO) 0.4 10^3/uL (0.0-1.0); MONOCYTES % (AUTO) 5.9 %; NEUTROPHILS # (AUTO) 3.4 10^3/uL (1.5-6.6); NEUTROPHILS % (AUTO) 47.5 %; PLT - PLATELET COUNT 213 10^3/uL (130-450); RED BLOOD COUNT 4.02 10^6/uL (4.20-5.40); RED CELL DISTRIBUTION WIDTH 12.4 % (12.0-15.0); WHITE BLOOD COUNT 7.1 x10^3/uL (4.8-10.8)
--- NOTE | 2020-03-06 18:17 | XRAY Report ---
PROCEDURE: Chest 1 View X-Ray INDICATIONS: Chest pain TECHNIQUE: One view of the chest was acquired. COMPARISON: 11/03/2017 FINDINGS: Surgical changes and devices: None. Lungs and pleura: No pleural effusions or pneumothorax. Lungs are clear. Mediastinum: Mediastinal contours appear normal. Heart size is normal. Bones and chest wall: No suspicious bony lesions. Overlying soft tissues appear unremarkable. IMPRESSION: No acute cardiopulmonary pathology. Reviewed by: Joselito Washburn MD on 03/06/2020 5:15 PM AKDT Approved by: Joselito Washburn MD on 03/06/2020 5:15 PM AKDT Station ID: [id number]
[2020-03-06 18:29] LABS: ALBUMIN 4.2 g/dL (3.2-5.5); ALBUMIN/GLOBULIN RATIO 1.3 (1.0-2.2); CALCIUM 9.8 mg/dL (8.5-10.3); CREATININE 0.9 mg/dL (0.4-1.0); TOTAL PROTEIN 7.5 g/dL (6.7-8.2)
[2020-03-06] MEDS ORDERED: LACTATED RINGERS 1,000 ML IV STA (18:29)
[2020-03-06] MEDS ORDERED: MAGNESIUM OXIDE 400 MG TABLET PO STA (18:30)
[2020-03-06] MEDS ORDERED: POTASSIUM CHLORIDE 20 MEQ TABLET PO STA (18:30)
[2020-03-06 18:38] LABS: BILIRUBIN,TOTAL 0.5 mg/dL (0.2-1.0)
[2020-03-06 19:37] VITALS: BP 180/68
[2020-03-06 19:47] LABS: FREE T3 3.44 pg/mL (2.5-3.9)
[2020-03-06 20:08] LABS: FREE T4 (FREE THYROXINE) 1.26 ng/dL (0.58-1.64)
== END 2020-03-06 19:37 | disposition home or self-care (01) ==
LOC: ED 17:45
DX: I49.3 Ventricular premature depolarization (principal); R01.1 Cardiac murmur, unspecified
CPT/HCPCS: 36415; 71045; 80053; 83690; 83735; 84439; 84443; 84481; 84484; 85025; 93005; 96360; 99284; A9270; J7120

== ENCOUNTER 2020-05-08 09:05 | Outpatient (CLI) | payer MEDICARE ==
[2020-05-08 09:43] LABS: CALCIUM 9.3 mg/dL (8.5-10.3); CREATININE 0.6 mg/dL (0.4-1.0)
== END 2020-05-08 09:06 | disposition home or self-care (01) ==
LOC: LAB 09:05
PROVIDERS: ATTEND Internal Medicine
DX: R79.89 Other specified abnormal findings of blood chemistry (principal); R94.6 Abnormal results of thyroid function studies
CPT/HCPCS: 36415; 80048; 84443

== ENCOUNTER 2020-09-19 08:15 | Outpatient (CLI) | payer MEDICARE ==
--- NOTE | 2020-09-22 09:30 | Mammography Report ---
BILATERAL DIGITAL DIAGNOSTIC MAMMOGRAM 3D/2D: 09/19/2020 CLINICAL: Focal left breast pain. Comparison is made to exam dated: 05/07/2010 mammogram - [facility]. There are sc attered fibroglandular elements in both breasts. There is an oval mass with a circumscribed margin and grouped coarse heterogeneous calcifications in the left breast central to the nipple anterior depth. This is increased in size. There also is a new irregular equal density focal asymmetry in the left breast at 5 o'clock posterior depth. This correlates as palpated. Adjacent to this focal asymmetry, there is another adjacent f ocal asymmetry. These lesions are only partially imaged on CC views. No other significant masses, calcifications, or other findings are seen in either breast. IMPRESSION: INCOMPLETE: NEEDS ADDITIONAL IMAGING EVALUATION The oval mass in the left breast central to the nipple anterior depth is indeterminate. An ultrasoun d is recommended. The new irregular equal density focal asymmetry in the left breast at 5 o'clock posterior depth is in determinate. There is no abnormality seen in the left breast to correspond with the palpable abnormality in the up per outer quadrant, however, ultrasound is recommended. This exam was interpreted at Station ID: [id number]. NOTE: For mammograms, a report in lay terms will be sent to the patient. Approximately 15% of breast malignancies will not be visualized mammographically. In the management of a palpable breast mass, a negative mammogram must not discourage biopsy of a clinically suspicious lesion. SUMMARY: Targeted ultrasound is recommended for further evaluation and will be scheduled immediately following this exam. Electronically Signed By: David padilla/[place]:09/19/2020 11:01:37 ACR BI-RADS Category 0: Incomplete 3340F PARENCHYMAL PATTERN: (A) - The breast(s) demonstrate(s) scattered fibroglandular densities. BI-RADS CATEGORY: (0) - 0 Ultrasound [id number] Immediate follow-up LATERALITY: (L)
--- NOTE | 2020-09-22 09:31 | Ultrasound Report ---
LIMITED ULTRASOUND OF LEFT BREAST AND AXILLA: 09/19/2020 CLINICAL: Palpable left breast lumps with focal pain. Comparison is made to exams dated: 09/19/2020 mammogram and 05/07/2010 mammogram - [facility]. Color flow and real-time ultrasound of the left breast 2-5 o'clock, retroareolar, and axilla regions were performed. Longoria scale images of the real-time examination were reviewed. There is a 1.2 cm x 1.1 cm x 0.8 cm irregular mass with an indistinct and angular margin in the left breast at 5:30 posterior depth 4 cm from the nipple. This irregular mass is hypoechoic with no poste rior acoustic shadowing or enhancement. This correlates as palpated and with mammography findings. Color flow imaging demonstrates that there is vascularity present. There also is a 0.7 cm x 1 cm x 0.9 cm oval mass with a circumscribed margin in the left breast centr al to the nipple in the retroareolar region. This oval mass is hypoechoic. This correlates with janae mography findings. Color flow imaging demonstrates that there is increased vascularity. Additionally, there is a 1.4 cm x 1.3 cm x 0.7 cm oval mass with a circumscribed margin in the left b reast at 5 o'clock posterior depth 6 cm from the nipple. This oval mass is hypoechoic with posterior acoustic enhancement. Color flow imaging demonstrates that there is vascularity present. No significant abnormalities were seen sonographically in the left axilla. IMPRESSION: SUSPICIOUS OF MALIGNANCY The 1.2 cm x 1.1 cm x 0.8 cm irregular mass in the left breast at 5:30 posterior depth is at a modera te suspicion for malignancy. An ultrasound guided biopsy is recommended. The 0.7 cm x 1 cm x 0.9 cm oval mass in the left breast central to the nipple in the retroareolar reg ion is at a low suspicion for malignancy. An ultrasound guided biopsy is recommended. The 1.4 cm x 1.3 cm x 0.7 cm oval mass in the left breast at 5 o'clock posterior depth is probably be nign. Follow-up mammogram and ultrasound in 6 months is recommended. Depending upon the biopsy resu lts for the adjacent more suspicious mass at the 5:30 position, this mass may be followed versus biop sied or excised. This exam was interpreted at Station ID: [id number]. SUMMARY: Two ultrasound guided biopsies of the left breast are recommended for the irregular mass at the 5:30 position and the circumscribed mass in the retroareolar region. Findings and recommendations were dis cussed with the patient by the on-site radiologist, Dr. Aguiar, at the time of the exam. Electronically Signed By: David Livingston M.D. ar/:09/19/2020 11:12:46 Ultrasound BI-RADS: 4b Moderate suspicion of malignancy BI-RADS CATEGORY: (4b) - Mod Susp None [id number] Immediate follow-up LATERALITY: ()
== END 2020-09-19 08:16 | disposition home or self-care (01) ==
LOC: DI 08:15
PROVIDERS: ATTEND Internal Medicine
DX: N63.23 Unspecified lump in the left breast, lower outer quadrant (principal); N63.42 Unspecified lump in left breast, subareolar; N64.4 Mastodynia

== ENCOUNTER 2021-10-21 08:00 | Outpatient (CLI) | payer MEDICARE ==
[2021-10-21 16:00] LABS: CHOL/HDL RATIO 3.5 (<4.4); CHOLESTEROL 241 mg/dL; HDL CHOLESTEROL 69 mg/dL; LDL CHOLESTEROL,CALCULATED 159 mg/dL; LDL/HDL RATIO 2.3 (<4.4); TRIGLYCERIDES 63 mg/dL; VLDL CHOLESTEROL 13 mg/dL
[2021-10-21 16:05] LABS: T4 (THYROXINE) 10.23 ug/dL (6.09-12.23)
[2021-10-21 16:08] LABS: THYROID STIMULATING HORMONE 0.14 uIU/mL (0.34-5.60)
[2021-10-21 16:10] LABS: FREE T3 3.2 pg/mL (2.5-3.9)
== END 2021-10-21 23:59 ==
LOC: LAB.R 08:00
PROVIDERS: ATTEND Internal Medicine
DX: E03.9 Hypothyroidism, unspecified (principal); Z13.6 Encounter for screening for cardiovascular disorders
CPT/HCPCS: 80061; 83721; 84436; 84443; 84480; 84481

== ENCOUNTER 2022-01-29 16:49 | Outpatient (CLI) | payer MEDICARE ==
--- NOTE | 2022-01-30 02:42 | Ultrasound Report ---
PROCEDURE: Duplex Lwr Ext Arterial Bilat INDICATIONS: SCREENING FOR PAD, POSITIVE ANKLE-BRACHIAL INDEX TECHNIQUE: Color and pulse Doppler interrogation was performed of both lower extremity arterial systems, with im age documentation. COMPARISON: None. FINDINGS: Right lower extremity: Common femoral artery: 109 cm/sec, with triphasic flow. Deep femoral artery: 55 cm/sec, with triphasic flow. Proximal superficial femoral artery: 109 cm/sec, with triphasic flow. Mid superficial femoral artery: 115 cm/sec, with triphasic flow. Distal superficial femoral artery: 90 cm/sec, with triphasic flow. Popliteal artery: 69 cm/sec, with triphasic flow. Posterior tibial artery: 84-160 cm/sec, with triphasic flow. There is spectral broadening distally. Anterior tibial artery/dorsalis pedis: 127-122 cm/sec, with triphasic flow. There is mild spectral b roadening. Longoria-scale imaging description: There is mild scattered atelectasis carotid plaque. Left lower extremity: Common femoral artery: 129 cm/sec, with triphasic flow. Deep femoral artery: 43 cm/sec, with triphasic flow. Proximal superficial femoral artery: 121 cm/sec, with triphasic flow. Mid superficial femoral artery: 109 cm/sec, with triphasic flow. Distal superficial femoral artery: 78 cm/sec, with triphasic flow. Popliteal artery: 83 cm/sec, with triphasic flow. Posterior tibial artery: 85-141 cm/sec, with triphasic flow. Anterior tibial artery/dorsalis pedis: 104-81 cm/sec, with triphasic flow. There is mild spectral br oadening. Longoria-scale imaging description: There is scattered atherosclerotic plaque. IMPRESSION: 1. Mildly increased velocities within the distal posterior tibial arteries bilaterally but with prese rved triphasic reforms and mild spectral broadening. Findings are compatible with mild narrowing of l ikely 20-49%. Reviewed by: Romeo Valdez MD on 01/30/2022 2:40 AM PDT Approved by: Romeo Valdez MD on 01/30/2022 2:40 AM PDT Station ID: [id number]
== END 2022-01-29 16:50 | disposition home or self-care (01) ==
LOC: DI 16:49
PROVIDERS: ATTEND Physician Assistant
DX: Z13.6 Encounter for screening for cardiovascular disorders (principal)
CPT/HCPCS: 93925

== ENCOUNTER 2022-02-05 08:13 | Outpatient (CLI) | payer MEDICARE ==
[2022-02-05 08:57] LABS: THYROID STIMULATING HORMONE 0.62 uIU/mL (0.34-5.60)
[2022-02-05 08:59] LABS: FREE T4 (FREE THYROXINE) 1.08 ng/dL (0.58-1.64)
== END 2022-02-05 08:14 | disposition home or self-care (01) ==
LOC: LAB 08:13
PROVIDERS: ATTEND Physician Assistant
DX: E03.9 Hypothyroidism, unspecified (principal)
CPT/HCPCS: 36415; 84439; 84443

== ENCOUNTER 2022-03-25 12:28 | Outpatient (CLI) | payer MEDICARE ==
--- NOTE | 2022-03-26 10:15 | Mammography Report ---
BILATERAL DIGITAL DIAGNOSTIC MAMMOGRAM 3D/2D: 03/25/2022 CLINICAL: Patient returns for follow up of the left breast, due for bilateral exam. Comparison is made to exams dated: 09/19/2020 mammogram and 05/07/2010 mammogram - [facility]. There are scattered areas of fibroglandular density in both breasts (category b / 25%-50% glandular t issue). There is a 1 cm mass with a spiculated margin in the left breast at 1 o'clock posterior depth. There also is a stable 1.2 cm mass with grouped dystrophic calcifications in the left breast central to the nipple anterior depth. Additionally, there is a 1.5 cm high density mass with a spiculated margin in the left breast central to the nipple posterior depth. This is increased in size and correlates as palpated. No other significant masses, calcifications, or other findings are seen in either breast. IMPRESSION: INCOMPLETE: NEEDS ADDITIONAL IMAGING EVALUATION The 1 cm mass in the left breast at 1 o'clock posterior depth is indeterminate. The stable 1.2 cm mass in the left breast central to the nipple anterior depth is indeterminate. The 1.5 cm high density mass in the left breast central to the nipple posterior depth is indeterminat e. A targeted ultrasound of the left breast is recommended and will be performed immediately following t his exam. Based on the Tyrer Cuzick model (a risk assessment model) the patients lifetime risk is 0.5% and her 10 year risk is 0.0%. According to the ACR, ACS, and NCCN guidelines, an annual breast MRI exam ralf g with mammogram is recommended if the patients lifetime risk is 20% or greater. This exam was interpreted at Station ID: [id number]. NOTE: For mammograms, a report in lay terms will be sent to the patient. Approximately 15% of breast malignancies will not be visualized mammographically. In the management of a palpable breast mass, a negative mammogram must not discourage biopsy of a clinically suspicious lesion. Electronically Signed By: Karrie Oliva M.D. lk/:03/25/2022 13:49:57 ACR BI-RADS Category 0: Incomplete 3340F PARENCHYMAL PATTERN: (A) - The breast(s) demonstrate(s) scattered fibroglandular densities. BI-RADS CATEGORY: (0) - 0 Ultrasound [id number] Immediate follow-up LATERALITY: (B)
--- NOTE | 2022-03-26 10:15 | Ultrasound Report ---
LIMITED ULTRASOUND OF LEFT BREAST AND AXILLA: 03/25/2022 CLINICAL: Patient returns today to evaluate asymmetries in left breast. Comparison is made to exams dated: 03/25/2022 mammogram, 09/19/2020 ultrasound, 09/19/2020 mammogram, an d 05/07/2010 mammogram - [facility]. Color flow ultrasound of the left breast 2 o'clock, 5 o'clock, retroareolar, and axilla regions was performed on the areas of interest. Longoria scale images of the real-time examination were reviewed. There is a 1.7 cm x 1.1 cm x 1.6 cm irregular mass in the left breast at 5 o'clock posterior depth. This irregular mass is hypoechoic with posterior acoustic shadowing. This abnormality is increased i n size. Color flow imaging demonstrates that there is vascularity present. There also is a 1.5 cm x 1.1 cm x 1.8 cm irregular mass in the left breast at 5 o'clock posterior dep th. This irregular mass is hypoechoic with posterior acoustic shadowing. This abnormality is increa sed in size. Color flow imaging demonstrates that there is vascularity present. Additionally, there is a 1 cm x 0.9 cm x 0.9 cm irregular mass in the left breast at 2 o'clock caddy/caddie supervisor ior depth. This irregular mass is hypoechoic with posterior acoustic shadowing. This abnormality is increased in size and correlates with mammography findings. Color flow imaging demonstrates that th ere is increased vascularity. In addition, there is a stable 1.4 cm x 1 cm x 0.7 cm irregular mass in the left breast central to th e nipple anterior depth. This irregular mass is hypoechoic. This correlates with mammography findin gs. The left axilla was interogated and normal appearing lymph nodes are visualized. IMPRESSION: HIGHLY SUGGESTIVE OF MALIGNANCY No left axillary adenopathy. The 1.7 cm x 1.1 cm x 1.6 cm irregular mass in the left breast at 5 o'clock posterior depth is highly suggestive of malignancy. An ultrasound guided biopsy is recommended. The 1.5 cm x 1.1 cm x 1.8 cm irregular mass in the left breast at 5 o'clock posterior depth is highly suggestive of malignancy. An ultrasound guided biopsy is recommended. The 1 cm x 0.9 cm x 0.9 cm irregular mass in the left breast at 2 o'clock posterior depth is at a hig h suspicion for malignancy. An ultrasound guided biopsy is recommended. The stable 1.4 cm x 1 cm x 0.7 cm irregular mass in the left breast central to the nipple anterior de pth most likely is a fibroadenoma and is probably benign. This exam was interpreted at Station ID: [id number]. SUMMARY: This was discussed with the patient by the radiologist at the time of the exam. Electronically Signed By: Karrie Oliva M.D. lk/:03/25/2022 16:17:26 Ultrasound BI-RADS: 5 Highly suggestive of malignancy BI-RADS CATEGORY: (5) - 5 Biopsy follow-up [id number] Immediate follow-up LATERALITY: (B)
== END 2022-03-25 12:29 | disposition home or self-care (01) ==
LOC: DI 12:28
PROVIDERS: ATTEND Physician Assistant
DX: R92.8 Other abnormal and inconclusive findings on diagnostic imaging of breast (principal)

== ENCOUNTER 2022-04-14 14:36 | Outpatient (CLI) | payer MEDICARE | END 2022-04-14 14:37 | disposition critical access hospital (66) | LOC: EMS 14:36 | DX: R53.1 Weakness (principal); R42 Dizziness and giddiness | CPT/HCPCS: A0425; A0429 ==

== ENCOUNTER 2022-04-14 14:42 | Emergency (ER) | payer MEDICARE ==
[2022-04-14 15:06] LABS: BASOPHILS % (AUTO) 0.3 %; EOSINOPHILS # (AUTO) 0.1 10^3/uL (0.0-0.7); EOSINOPHILS % (AUTO) 1.5 %; HCT - HEMATOCRIT 37.3 % (37.0-47.0); HGB - HEMOGLOBIN 12.6 g/dL (12.0-16.0); LYMPHOCYTES # (AUTO) 2.8 10^3/uL (1.5-3.5); LYMPHOCYTES % (AUTO) 40.9 %; MEAN CORPUSCULAR HEMOGLOBIN 30.9 pg (27.0-31.0); MEAN CORPUSCULAR HGB CONC 33.8 g/dL (32.0-36.0); MEAN CORPUSCULAR VOLUME 91.4 fL (81.0-99.0); MEAN PLATELET VOLUME 10.6 fL (7.9-10.8); MONOCYTES # (AUTO) 0.4 10^3/uL (0.0-1.0); MONOCYTES % (AUTO) 6.2 %; NEUTROPHILS # (AUTO) 3.5 10^3/uL (1.5-6.6); PLT - PLATELET COUNT 212 10^3/uL (130-450); RED BLOOD COUNT 4.08 10^6/uL (4.20-5.40); RED CELL DISTRIBUTION WIDTH 12.6 % (12.0-15.0); WHITE BLOOD COUNT 6.8 x10^3/uL (4.8-10.8)
--- NOTE | 2022-04-14 15:11 | XRAY Report ---
PROCEDURE: Chest 1 View X-Ray INDICATIONS: lightheaded, h/o mitral valve prolapse TECHNIQUE: One view of the chest was acquired. COMPARISON: Chest x-ray 03/06/2020 FINDINGS: Surgical changes and devices: None. Lungs and pleura: No pleural effusions or pneumothorax. Lungs are clear. Mediastinum: Mediastinal contours appear normal. Heart size is normal. Bones and chest wall: No suspicious bony lesions. Overlying soft tissues appear unremarkable. IMPRESSION: No acute cardiopulmonary abnormality. Reviewed by: David Livingston MD on 04/14/2022 3:10 PM PDT Approved by: David Livingston MD on 04/14/2022 3:10 PM PDT Station ID: [id number]
--- NOTE | 2022-04-14 15:16 | ED Physician Documentation ---
History of Present Illness - Stated complaint Stated Complaint: DIZZY - Chief complaint Chief Complaint: Cardiac - History obtained from History obtained from: Patient, EMS - History of Present Illness Pain level max: 0 Pain level now: 0 - Additonal information Additional information: Patient is an 82-year-old female brought in by ambulance for complaint of feeling lightheaded for the past several weeks. She states that she had some nausea with it today. She states that she had an echocardiogram recently but does not know the results. She does know that she has a mitral valve prolapse. No chest pain. No changes in shortness of breath. She states that she contacted her doctor who recommended she come to the emergency department for evaluation. She states the symptoms have been present for several weeks with not much change. Review of Systems Constitutional: denies: Fever, Chills Ears: denies: Ear pain Nose: denies: Rhinorrhea / runny nose, Congestion Throat: denies: Sore throat Cardiac: denies: Palpitations Respiratory: denies: Cough GI: denies: Nausea, Vomiting, Diarrhea Musculoskeletal: denies: Neck pain, Back pain Neurologic: denies: Headache PD PAST MEDICAL HISTORY - Past Medical History Past Medical History: Yes Cardiovascular: Valve disorder, Other Respiratory: Other Endocrine/Autoimmune: HyPOthyroidism GI: None : None HEENT: None Psych: None Musculoskeletal: Osteoarthritis, Other Derm: None - Past Surgical History Past Surgical History: Yes General: Appendectomy 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, 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 Neuro: Craniotomy HEENT: Tonsil/Adenoidectomy - Present Medications Home Medications: Ambulatory Orders Medication Instructions Recorded Confirmed Levothyroxine [Synthroid] 75 mcg PO DAILY 01/18/14 06/06/19 Naproxen Sodium [Aleve] 220 mg PO DAILY PRN 06/05/19 06/05/19 Potassium Chloride 10 meq PO DAILY #20 tablet.er 03/06/20 - Allergies Allergies/Adverse Reactions: Allergies Allergy/AdvReac Type Severity Reaction Status Date / Time hydrochlorothiazide Allergy Unknown Verified 04/14/22 14:55 penicillin V Allergy Unknown Verified 04/14/22 14:55 dust mites Allergy Unknown Uncoded 04/14/22 14:55 grassess,hay, wheat Allergy Unknown Uncoded 04/14/22 14:55 molds Allergy Unknown Uncoded 04/14/22 14:55 pet dander Allergy Unknown Uncoded 04/14/22 14:55 - Social History Does the pt smoke?: No Smoking Status: Never smoker Does the pt drink ETOH?: No Does the pt have substance abuse?: No - Immunizations Immunizations are current?: Yes - POLST Patient has POLST: No PD ED PE NORMAL - Vitals Vital signs reviewed: Yes - General General: Alert and oriented X 3, No acute distress - HEENT HEENT: PERRL, Moist mucous membranes - Neck Neck: Supple, no meningeal sign - Cardiac Cardiac: RRR, Strong equal pulses, Other (3 out of 6 systolic murmur) - Respiratory Respiratory: No respiratory distress, Clear bilaterally - Abdomen Abdomen: Soft, Non tender, Non distended - Derm Derm: Warm and dry - Extremities Extremities: No edema, No calf tenderness / cord - Neuro Neuro: Alert and oriented X 3 - Psych Psych: Normal mood, Normal affect Results - Vitals Vitals: Vital Signs - 24 hr 04/14/22 04/14/22 14:51 15:04 Temperature 37.2 C Heart Rate 93 65 Respiratory 14 16 Rate Blood Pressure 183/86 H 148/88 H O2 Saturation 97 96 Oxygen O2 Source Room air - EKG (time done) 1458 Rate: Rate (enter#) (64) Rhythm: NSR [place]: Normal Intervals: Normal DC QRS: Normal Ischemia: Normal ST segments - Labs Labs: Laboratory Tests 04/14/22 04/14/22 04/14/22 15:01 15:01 15:01 WBC 6.8 RBC 4.08 L Hgb 12.6 Hct 37.3 MCV 91.4 MCH 30.9 MCHC 33.8 RDW 12.6 Plt Count 212 MPV 10.6 Neut # (Auto) 3.5 Lymph # (Auto) 2.8 [place] # (Auto) 0.4 Eos # (Auto) 0.1 Baso # (Auto) 0.0 Absolute Nucleated RBC 0.00 Nucleated RBC % 0.0 Sodium 140 Potassium 3.9 Chloride 105 Carbon Dioxide 25 Anion Gap 10.0 BUN 23 H Creatinine 0.8 Estimated GFR (MDRD) 69 L Glucose 144 H Calcium 9.9 Total Bilirubin 0.4 AST 20 ALT 19 Alkaline Phosphatase 60 Troponin I High Sens 3.9 B-Natriuretic Peptide Total Protein 7.2 Albumin 4.1 Globulin 3.1 Albumin/Globulin Ratio 1.3 Lipase 43 04/14/22 15:01 WBC RBC Hgb Hct MCV MCH MCHC RDW Plt Count MPV Neut # (Auto) Lymph # (Auto) [place] # (Auto) Eos # (Auto) Baso # (Auto) Absolute Nucleated RBC Nucleated RBC % Sodium Potassium Chloride Carbon Dioxide Anion Gap BUN Creatinine Estimated GFR (MDRD) Glucose Calcium Total Bilirubin AST ALT Alkaline Phosphatase Troponin I High Sens B-Natriuretic Peptide 27 Total Protein Albumin Globulin Albumin/Globulin Ratio Lipase - Rads (name of study) cxr Radiology: Final report received, EMP read contemporaneously, See rad report (no acute abnormality) PD MEDICAL DECISION MAKING - ED course Complexity details: reviewed results, re-evaluated patient, considered differential, d/w patient ED course: 82-year-old female presents to the emergency department lightheadedness. No vertiginous symptoms. No spinning. Her chest x-ray, EKG and laboratory testing did not reveal any acute abnormalities other than elevated BUN to creatinine ratio. Given IV fluids. No neurological deficits. Normal cerebellar test. Normal gait. Patient is currently asymptomatic. We will have her follow-up with her doctor for further care. Patient counseled regarding signs and symptoms for which I believe and urgent re-evaluation would be necessary. Patient with good understanding of and agreement to plan and is comfortable going home at this time This document was made in part using voice recognition software. While efforts are made to proofread this document, sound alike and grammatical errors may occur. Departure - Departure Disposition: 01 Home, Self Care Clinical Impression: Lightheadedness, Dehydration Condition: Good Instructions: ED Dehydration Follow-Up: Jennifer Szymanski PA-C [Primary Care Provider] - Within 1 week Comments: Please follow-up with your doctor for further care. Please return if you worsen. Continue your current medications at home.
[2022-04-14 15:25] LABS: ALBUMIN 4.1 g/dL (3.2-5.5); ALBUMIN/GLOBULIN RATIO 1.3 (1.0-2.2); BILIRUBIN,TOTAL 0.4 mg/dL (0.2-1.0); CALCIUM 9.9 mg/dL (8.5-10.3); CREATININE 0.8 mg/dL (0.4-1.0); POTASSIUM 3.9 mmol/L (3.5-5.0); TOTAL PROTEIN 7.2 g/dL (6.7-8.2)
[2022-04-14] MEDS ORDERED: SODIUM CHLORIDE 0.9% 1,000 ML IV STA (15:37)
[2022-04-14 17:04] VITALS: BP 178/72
== END 2022-04-14 17:14 | disposition home or self-care (01) ==
LOC: EDUNIT# → ED 14:42
DX: R42 Dizziness and giddiness (principal); E86.0 Dehydration
CPT/HCPCS: 36415; 80053; 83690; 83880; 84484; 85025; 93005; 96360; 99283

== ENCOUNTER 2022-05-10 10:06 | Outpatient (CLI) | payer MEDICARE ==
[2022-05-10 10:36] LABS: ALBUMIN 4.1 g/dL (3.2-5.5); ALBUMIN/GLOBULIN RATIO 1.4 (1.0-2.2); BILIRUBIN,TOTAL 0.5 mg/dL (0.2-1.0); CALCIUM 9.6 mg/dL (8.5-10.3); CREATININE 0.6 mg/dL (0.4-1.0); POTASSIUM 4.4 mmol/L (3.5-5.0); TOTAL PROTEIN 7.1 g/dL (6.7-8.2)
== END 2022-05-10 10:07 | disposition home or self-care (01) ==
LOC: LAB 10:06
PROVIDERS: ATTEND Physician Assistant
DX: I10 Essential (primary) hypertension (principal)
CPT/HCPCS: 36415; 80053

== ENCOUNTER 2023-01-01 08:47 | Outpatient (CLI) | payer MEDICARE ==
[2023-01-01 09:28] LABS: BASOPHILS % (AUTO) 0.6 %; EOSINOPHILS # (AUTO) 0.2 10^3/uL (0.0-0.7); EOSINOPHILS % (AUTO) 2.9 %; HGB - HEMOGLOBIN 12.6 g/dL (12.0-16.0); LYMPHOCYTES # (AUTO) 2.4 10^3/uL (1.5-3.5); LYMPHOCYTES % (AUTO) 46.6 %; MEAN CORPUSCULAR HEMOGLOBIN 30.2 pg (27.0-31.0); MEAN CORPUSCULAR HGB CONC 32.3 g/dL (32.0-36.0); MEAN CORPUSCULAR VOLUME 93.5 fL (81.0-99.0); MONOCYTES # (AUTO) 0.4 10^3/uL (0.0-1.0); MONOCYTES % (AUTO) 6.7 %; NEUTROPHILS # (AUTO) 2.2 10^3/uL (1.5-6.6); PLT - PLATELET COUNT 196 10^3/uL (130-450); RED BLOOD COUNT 4.17 10^6/uL (4.20-5.40); RED CELL DISTRIBUTION WIDTH 12.6 % (12.0-15.0); WHITE BLOOD COUNT 5.2 x10^3/uL (4.8-10.8)
[2023-01-01 09:36] LABS: ALBUMIN 3.9 g/dL (3.2-5.5); ALBUMIN/GLOBULIN RATIO 1.2 (1.0-2.2); BILIRUBIN,TOTAL 0.6 mg/dL (0.2-1.0); CALCIUM 9.3 mg/dL (8.5-10.3); CREATININE 0.7 mg/dL (0.4-1.0); POTASSIUM 4.3 mmol/L (3.5-5.0); TOTAL PROTEIN 7.1 g/dL (6.7-8.2)
[2023-01-01 09:54] LABS: THYROID STIMULATING HORMONE 0.63 uIU/mL (0.34-5.60)
[2023-01-01 14:33] LABS: ESTIMATED AVERAGE GLUCOSE 114 mg/dL (70-100); HEMOGLOBIN A1c% 5.6 % (4.27-6.07)
== END 2023-01-01 08:48 | disposition home or self-care (01) ==
LOC: LAB 08:47
PROVIDERS: ATTEND Physician Assistant
DX: R73.01 Impaired fasting glucose (principal); R20.2 Paresthesia of skin; R20.0 Anesthesia of skin
CPT/HCPCS: 36415; 80053; 82607; 82746; 83036; 84443; 85025

== ENCOUNTER 2023-07-12 08:00 | Outpatient (CLI) | payer MEDICARE ==
--- NOTE | 2023-07-12 14:09 | XRAY Report ---
PROCEDURE: Finger(s) RT INDICATIONS: RIGHT THUMB PAIN TECHNIQUE: AP hand, 2 views of the first finger(s) acquired. COMPARISON: None. FINDINGS: Bones: Moderate to severe scattered degenerative changes in the interphalangeal joints, carpal bones , and particularly at the base of the thumb. Subchondral lucencies probably represent geodes versus s equela of prior erosion. First CMC and STT slight deformity likely secondary to advanced degenerative changes. Soft tissues: No suspicious calcifications. IMPRESSION: Advanced degenerative changes, particularly at the base of the thumb. Subchondral lucencies probably representing geodes, versus sequela of prior erosion. Reviewed by: Wisam Cedillo MD on 07/12/2023 2:08 PM PST Approved by: Wisam Cedillo MD on 07/12/2023 2:08 PM PST Station ID: [id number]
== END 2023-07-12 23:59 | disposition home or self-care (01) ==
LOC: DI.WOS 08:00
PROVIDERS: ATTEND Orthopaedic Surgery
DX: M18.11 Unilateral primary osteoarthritis of first carpometacarpal joint, right hand (principal); M19.041 Primary osteoarthritis, right hand

== ENCOUNTER 2023-08-15 12:57 | Outpatient (CLI) | payer MEDICARE ==
[2023-08-15 13:27] LABS: CREATININE 0.7 mg/dL (0.6-1.3)
[2023-08-15] MEDS ORDERED: GADOTERATE MEGLUMINE 10 MMOL/20 ML VIAL ONE (13:29)
--- NOTE | 2023-08-15 16:58 | MRI Report ---
PROCEDURE: Brain W/WO INDICATIONS: LOSS OF CORDINATION, HEADACHE CONTRAST: clariscan 13ml TECHNIQUE: Noncontrast axial T1 spin echo, axial T2 fast spin echo, sagittal and axial FLAIR, coronal T2 fast sp in echo, axial gradient echo, axial diffusion and ADC through the brain. After the administration of contrast, axial and coronal T1 spin echo with fat saturation through the brain. COMPARISON: MRI brain 01/18/2014 FINDINGS: Image quality: Excellent. CSF spaces: Basal cisterns are patent. No extra-axial fluid collections. Ventricles are normal in size and shape. Brain: No midline shift. No intracranial bleeds or masses. No abnormal intracranial enhancement. There is cerebral volume loss for age. Previously identified right parafalcine enhancing extra-axial mass is no longer visualized. There is periventricular white matter chronic small vessel ischemic ch aysha. The brainstem appears normal. Diffusion-weighted images demonstrate no acute ischemic insults . No chronic ischemic insults. Normal intravascular flow voids are present. Skull and face: Calvarial marrow is normal in signal. Orbits appear normal. Sinuses: Sinuses demonstrate trace mucosal thickening. The mastoids appear clear. IMPRESSION: 1. No acute intracranial process. 2. Moderate atrophy and chronic microvascular ischemic changes. Reviewed by: Esmer Bennett MD on 08/15/2023 4:57 PM PST Approved by: Esmer Bennett MD on 08/15/2023 4:57 PM PST Station ID: [id number]
[2023-08-15] MEDS ORDERED: GADOTERATE MEGLUMINE 10 MMOL/20 ML VIAL IVP ONE (17:16)
== END 2023-08-15 12:58 | disposition home or self-care (01) ==
LOC: LAB 12:57
PROVIDERS: ATTEND Physician Assistant
DX: R27.9 Unspecified lack of coordination (principal); R51.9 Headache, unspecified; G31.89 Other specified degenerative diseases of nervous system; I67.82 Cerebral ischemia
CPT/HCPCS: 36415; 82565

== ENCOUNTER 2023-08-15 18:41 | Emergency (ER) | payer MEDICARE ==
[2023-08-15 19:33] LABS: BASOPHILS % (AUTO) 0.3 %; EOSINOPHILS # (AUTO) 0.1 10^3/uL (0.0-0.7); EOSINOPHILS % (AUTO) 1.4 %; HCT - HEMATOCRIT 39.7 % (37.0-47.0); HGB - HEMOGLOBIN 12.8 g/dL (12.0-16.0); LYMPHOCYTES # (AUTO) 3.2 10^3/uL (1.5-3.5); LYMPHOCYTES % (AUTO) 46.2 %; MEAN CORPUSCULAR HEMOGLOBIN 29.9 pg (27.0-31.0); MEAN CORPUSCULAR HGB CONC 32.2 g/dL (32.0-36.0); MEAN CORPUSCULAR VOLUME 92.8 fL (81.0-99.0); MEAN PLATELET VOLUME 10.9 fL (7.9-10.8); MONOCYTES # (AUTO) 0.5 10^3/uL (0.0-1.0); MONOCYTES % (AUTO) 7.2 %; NEUTROPHILS # (AUTO) 3.1 10^3/uL (1.5-6.6); NEUTROPHILS % (AUTO) 44.8 %; PLT - PLATELET COUNT 200 10^3/uL (130-450); RED BLOOD COUNT 4.28 10^6/uL (4.20-5.40); RED CELL DISTRIBUTION WIDTH 12.6 % (12.0-15.0); WHITE BLOOD COUNT 6.9 x10^3/uL (4.8-10.8)
[2023-08-15 20:02] LABS: ALBUMIN 4.4 g/dL (3.2-5.5); ALBUMIN/GLOBULIN RATIO 1.3 (1.0-2.2); BILIRUBIN,TOTAL 0.4 mg/dL (0.2-1.0); CALCIUM 10.1 mg/dL (8.5-10.3); CREATININE 0.7 mg/dL (0.6-1.3); POTASSIUM 3.8 mmol/L (3.5-4.5); TOTAL PROTEIN 7.7 g/dL (6.4-8.9)
--- NOTE | 2023-08-15 20:14 | ED Physician Documentation ---
PD HPI CHEST PAIN - Stated complaint Stated Complaint: CHEST PX - Chief complaint Chief Complaint: Cardiac - History obtained from History obtained from: Patient - Additional information Additional information: 83-year-old woman with history of breast cancer in remission only on anastrozole had an MRI of her brain done earlier today and finished up around 230. Was with contrast. About 3:00 developed mild right-sided chest pain that got worse at 6 PM while she was bending over and now it hurts to take a deep breath. She denies shortness of breath, sweatiness, nausea, radiation to the back, diz ziness. No pedal edema or calf pain. No history of heart problems. 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, Oophrectomy Neuro: Craniotomy HEENT: Tonsil/Adenoidectomy - Present Medications Home Medications: Ambulatory Orders Medication Instructions Recorded Confirmed Levothyroxine [Synthroid] 100 mcg PO DAILY 01/18/14 03/01/23 Cholecalciferol [Vitamin D3] 400 unit PO DAILY 06/22/22 03/01/23 Glucos Sul 2Kcl/MSM/Chond/C/Mn 1 each PO DAILY 06/22/22 03/01/23 [Glucosamine Chondroitin Cap] Lactobacillus Combination No.4 1 each PO DAILY 06/22/22 03/01/23 [Probiotic] Magnesium Citrate 250 mg PO DAILY 06/22/22 03/01/23 [place]-3S/Dha/Epa/Fish Oil [Fish 1 each PO DAILY 06/22/22 03/01/23 Oil 1,200 mg Softgel] Exemestane [Aromasin] 25 mg PO DAILY 03/01/23 03/01/23 - Allergies Allergies/Adverse Reactions: Allergies Allergy/AdvReac Type Severity Reaction Status Date / Time hydrochlorothiazide Allergy Unknown Verified 04/14/22 14:55 penicillin V Allergy Unknown Verified 04/14/22 14:55 dust mites Allergy Unknown Uncoded 04/14/22 14:55 grassess,hay, wheat Allergy Unknown Uncoded 04/14/22 14:55 molds Allergy Unknown Uncoded 04/14/22 14:55 pet dander Allergy Unknown Uncoded 04/14/22 14:55 - Social History Does the pt smoke?: No Smoking Status: Never smoker Does the pt drink ETOH?: No Does the pt have substance abuse?: No - Immunizations Immunizations are current?: Yes - POLST Patient has POLST: No PD ED PE NORMAL - Vitals Vital signs reviewed: Yes - General General: Alert and oriented X 3, No acute distress - HEENT HEENT: PERRL, EOMI - Neck Neck: Supple, no meningeal sign, No bony TTP - Cardiac Cardiac: RRR, No murmur - Respiratory Respiratory: No respiratory distress, Clear bilaterally - Abdomen Abdomen: Non tender, Non distended - Extremities Extremities: No edema, No calf tenderness / cord - Neuro Neuro: Alert and oriented X 3, No motor deficit, No sensory deficit, Normal speech Results - Vitals Vitals: Vital Signs - 24 hr 08/15/23 08/15/23 08/15/23 18:47 19:22 19:30 Temperature 36 C L Heart Rate 62 66 64 Respiratory 16 16 14 Rate Blood Pressure 181/75 H 146/102 H 142/107 H O2 Saturation 100 98 97 08/15/23 08/15/23 20:00 20:30 Temperature Heart Rate 57 L 64 Respiratory 13 16 Rate Blood Pressure 175/90 H O2 Saturation 97 95 Oxygen O2 Source Room air - EKG (time done) 1854 EKG releavant findings:: EKG personally interpreted by author of this note. Relevant findings are: Rate: Rate (enter#) (65) Rhythm: NSR [place]: Normal Intervals: Prolonged [place] Ischemia: Non specific changes. No: ST elevation c/w ischemia, ST depression 1942 EKG releavant findings:: EKG personally interpreted by author of this note. Relevant findings are: Rate: Rate (enter#) (63) Rhythm: NSR [place]: Normal Intervals: Prolonged [place] Ischemia: Non specific changes. No: ST elevation c/w ischemia, ST depression - Labs Labs: Laboratory Tests 08/15/23 08/15/23 08/15/23 19:29 19:29 21:22 WBC 6.9 RBC 4.28 Hgb 12.8 Hct 39.7 MCV 92.8 MCH 29.9 MCHC 32.2 RDW 12.6 Plt Count 200 MPV 10.9 H Neut # (Auto) 3.1 Lymph # (Auto) 3.2 [place] # (Auto) 0.5 Eos # (Auto) 0.1 Baso # (Auto) 0.0 Absolute Nucleated RBC 0.00 Nucleated RBC % 0.0 Sodium 136 Potassium 3.8 Chloride 103 Carbon Dioxide 27 Anion Gap 6.0 BUN 21 H Creatinine 0.7 Estimated GFR (MDRD) 80 L Glucose 89 Calcium 10.1 Total Bilirubin 0.4 AST 20 ALT 18 Alkaline Phosphatase 52 Troponin I High Sens 5.0 5.2 Total Protein 7.7 Albumin 4.4 Globulin 3.3 Albumin/Globulin Ratio 1.3 Lipase 104 H - Rads (name of study) 1v chest-neg Relevant Findings:: Final report received, EMP independent interpretation of test PD Medical Decision Making - ED course ED course: 83-year-old woman presents with atypical chest pain that worsened with bending over and deep breathing. Initial lab work done at 7:30 PM demonstrates a normal CBC and CMP with negative troponin. 2 EKGs done earlier in her stay were without significant ischemic change. This is a bre 83-year-old woman with quite atypical chest pain that worsened when she bends over or takes a deep breath. Initial workup in the emergency department showed a normal CBC, normal CMP, and initial troponin -5.0. Given that was a fairly acute chest pain she was kept around for a second troponin after 2 hours which was flat at 5.2 and still negative. Chest x-ray was negative. We trialed a GI cocktail which actually was not very helpful for her, but that said the atypicality and negative delta troponins make ACS very unlikely. Departure - Departure Disposition: 01 Home, Self Care Clinical Impression: Chest pain Condition: Good Record reviewed to determine appropriate education?: Yes Instructions: ED Chest Pain NonCardiac Comments: We did 2 sets of troponins which were normal/negative and your EKGs did not show any concerning findings. Call your doctor to arrange a follow-up appointment, make the next available appointment. In the interim, return anytime if worse or if new symptoms develop. Forms: PCP List
[2023-08-15] MEDS ORDERED: LIDOCAINE TOPICAL 4% 50 ML BOTTLE MM STA (20:50)
[2023-08-15] MEDS ORDERED: MAG HYDROX/AL HYDROX/SIMETH 30 ML UDC PO STA (20:50)
[2023-08-15 20:51] VITALS: O2SAT 95
--- NOTE | 2023-08-15 20:59 | XRAY Report ---
PROCEDURE: Chest 1V INDICATIONS: Chest pain TECHNIQUE: One view of the chest was acquired. COMPARISON: None. FINDINGS: Surgical changes and devices: None. Lungs and pleura: No pleural effusions or pneumothorax. Lungs are clear. Mediastinum: Mediastinal contours appear normal. Heart size is normal. Bones and chest wall: No suspicious bony lesions. Overlying soft tissues appear unremarkable. IMPRESSION: No acute cardiopulmonary process. Reviewed by: Sarah Zimmer MD on 08/15/2023 8:57 PM PST Approved by: Sarah Zimmer MD on 08/15/2023 8:57 PM PST Station ID: [id number]
[2023-08-15 22:32] VITALS: BP 149/60
== END 2023-08-15 22:23 | disposition home or self-care (01) ==
LOC: ED 18:41
DX: R07.9 Chest pain, unspecified (principal); R27.9 Unspecified lack of coordination; R51.9 Headache, unspecified; G31.89 Other specified degenerative diseases of nervous system; I67.82 Cerebral ischemia
CPT/HCPCS: 36415; 70553; 71045; 80053; 82565; 83690; 84484; 85025; 93005; 99283; 99284; A9270; A9575

== ENCOUNTER 2023-08-24 16:31 | Outpatient (CLI) | payer MEDICARE | END 2023-08-24 16:32 | disposition home or self-care (01) | LOC: LAB 16:31 | PROVIDERS: ATTEND Physician Assistant | DX: M25.50 Pain in unspecified joint (principal) | CPT/HCPCS: 36415; 85651; 86140 ==

== ENCOUNTER 2023-09-05 08:00 | Outpatient (CLI) | payer MEDICARE ==
--- NOTE | 2023-09-05 13:11 | XRAY Report ---
PROCEDURE: Hand 3 View LT INDICATIONS: LEFT HAND PAIN TECHNIQUE: 3 views of the hand(s) acquired. COMPARISON: None. FINDINGS: Bones: There are no acute fractures or elias dislocation. There is severe polyarticular arthropathy, most significant in the digits. There are erosive changes and impaction deformity at the fourth PIP, irregularity and hypertrophic spurring at the DIP joints, third and fifth PIP joints, first IP joint and the second MCP joint. Flattening deformity at the second MCP and fifth PIP. There is moderate hy pertrophic spurring at the first CMC joint. Mild triscaphe joint space loss. Soft tissues: No suspicious soft tissue calcifications or masses. IMPRESSION: Advanced polyarticular arthritic changes including erosions, most evident at the fourth PIP joint. Reviewed by: Sarah Zimmer MD on 09/05/2023 1:10 PM PST Approved by: Sarah Zimmer MD on 09/05/2023 1:10 PM PST Station ID: [id number]
== END 2023-09-05 23:59 | disposition home or self-care (01) ==
LOC: DI.WOS 08:00
PROVIDERS: ATTEND Physician Assistant Surgical
DX: M19.042 Primary osteoarthritis, left hand (principal)

== ENCOUNTER 2023-10-03 08:00 | Outpatient (CLI) | payer MEDICARE | END 2023-10-03 23:59 | disposition home or self-care (01) | LOC: PC 08:00 | PROVIDERS: ATTEND Nurse Practitioner Gerontology | DX: Z51.5 Encounter for palliative care (principal); C50.912 Malignant neoplasm of unspecified site of left female breast; Z17.0 Estrogen receptor positive status [ER+]; K59.09 Other constipation; G47.00 Insomnia, unspecified; G31.84 Mild cognitive impairment of uncertain or unknown etiology; Z66 Do not resuscitate; K21.9 Gastro-esophageal reflux disease without esophagitis; R25.2 Cramp and spasm; Z87.891 Personal history of nicotine dependence | CPT/HCPCS: 99350 ==

== ENCOUNTER → 2023-11-16 | Outpatient (CLI) | payer MEDICARE | LOC: PC 08:00 | PROVIDERS: ATTEND Nurse Practitioner Gerontology | DX: Z51.5 Encounter for palliative care (principal); K59.00 Constipation, unspecified; M25.511 Pain in right shoulder; Z87.891 Personal history of nicotine dependence | CPT/HCPCS: 99350 ==

== ENCOUNTER 2023-11-18 13:31 | Outpatient (CLI) | payer MEDICARE ==
[2023-11-18 13:42] LABS: HCT - HEMATOCRIT 37.7 % (37.0-47.0); HGB - HEMOGLOBIN 12.2 g/dL (12.0-16.0); MEAN CORPUSCULAR HEMOGLOBIN 30.5 pg (27.0-31.0); MEAN CORPUSCULAR HGB CONC 32.4 g/dL (32.0-36.0); MEAN CORPUSCULAR VOLUME 94.3 fL (81.0-99.0); MEAN PLATELET VOLUME 10.9 fL (7.9-10.8); RED CELL DISTRIBUTION WIDTH 12.4 % (12.0-15.0); WHITE BLOOD COUNT 5.9 x10^3/uL (4.8-10.8)
[2023-11-18 13:56] LABS: ALBUMIN 4.2 g/dL (3.2-5.5); ALBUMIN/GLOBULIN RATIO 1.8 (1.0-2.2); BILIRUBIN,TOTAL 0.4 mg/dL (0.2-1.0); CREATININE 0.8 mg/dL (0.6-1.3); POTASSIUM 4.3 mmol/L (3.5-4.5); TOTAL PROTEIN 6.6 g/dL (6.4-8.9)
[2023-11-18 14:12] LABS: THYROID STIMULATING HORMONE 0.4 uIU/mL (0.34-5.60)
--- NOTE | 2023-11-18 14:44 | XRAY Report ---
PROCEDURE: Shoulder 2+V RT INDICATIONS: RIGHT SHOULDER JOINT PAIN TECHNIQUE: 3 views of the shoulder were acquired. COMPARISON: None. FINDINGS: Bones: No fractures or dislocations. Moderate degenerative changes. No suspicious bony lesions. Vi sualized ribs appear intact. Soft tissues: No suspicious soft tissue calcifications. The visualized lungs are within normal limi ts. IMPRESSION: No acute bony abnormality. Moderate right shoulder DJD. Reviewed by: Jose eRynolds MD on 11/18/2023 2:42 PM PDT Approved by: Jose Reynolds MD on 11/18/2023 2:42 PM PDT Station ID: [id number]
== END 2023-11-18 13:32 | disposition home or self-care (01) ==
LOC: DI 13:31
PROVIDERS: ATTEND Nurse Practitioner Gerontology
DX: M19.011 Primary osteoarthritis, right shoulder (principal); N28.9 Disorder of kidney and ureter, unspecified; K59.09 Other constipation; M25.50 Pain in unspecified joint
CPT/HCPCS: 36415; 80053; 84443; 85027

== ENCOUNTER 2023-12-14 08:00 | Outpatient (CLI) | payer MEDICARE | END 2023-12-14 23:59 | disposition home or self-care (01) | LOC: PC 08:00 | PROVIDERS: ATTEND Nurse Practitioner Gerontology | DX: Z51.5 Encounter for palliative care (principal); M25.50 Pain in unspecified joint; K59.09 Other constipation; C50.912 Malignant neoplasm of unspecified site of left female breast; Z17.0 Estrogen receptor positive status [ER+]; Z79.69 Long term (current) use of other immunomodulators and immunosuppressants; G31.84 Mild cognitive impairment of uncertain or unknown etiology | CPT/HCPCS: 99350 ==

== ENCOUNTER 2024-02-21 13:55 | Outpatient (CLI) | payer MEDICARE ==
--- NOTE | 2024-02-21 18:15 | XRAY Report ---
PROCEDURE: Knee 4+V BL INDICATIONS: BILATERAL KNEE PAIN TECHNIQUE: 4 views of the knee(s) were acquired. COMPARISON: None. FINDINGS: Bones: No fractures or dislocations. Moderate bilateral tricompartmental osteoarthritis is seen mor e notably in medial femoral tibial compartments. Mild lateral subluxation of bilateral patella is see n. No suspicious bony lesions. Soft tissues: Small knee joint effusion. No suspicious soft tissue calcifications or masses. IMPRESSION: Moderate bilateral tricompartmental osteoarthritis more notably in medial femoral tibial compartments . No fracture or dislocation. Slight lateral subluxation of bilateral patella. Small bilateral suprap atellar joint effusion. Reviewed by: Joselito Washburn MD on 02/21/2024 6:14 PM PDT Approved by: Joselito Washburn MD on 02/21/2024 6:14 PM PDT Station ID: [id number]
== END 2024-02-21 13:56 | disposition home or self-care (01) ==
LOC: DI 13:55
PROVIDERS: ATTEND Physician Assistant
DX: M17.0 Bilateral primary osteoarthritis of knee (principal); M25.461 Effusion, right knee; M25.462 Effusion, left knee; S83.012A Lateral subluxation of left patella, initial encounter; S83.011A Lateral subluxation of right patella, initial encounter

== ENCOUNTER 2024-03-14 15:00 | Outpatient (CLI) | payer MEDICARE | END 2024-03-14 23:59 | disposition home or self-care (01) | LOC: PC 15:00 | PROVIDERS: ATTEND Nurse Practitioner Gerontology | DX: Z51.5 Encounter for palliative care (principal); C50.912 Malignant neoplasm of unspecified site of left female breast; R20.2 Paresthesia of skin; R20.0 Anesthesia of skin; G31.84 Mild cognitive impairment of uncertain or unknown etiology; M19.012 Primary osteoarthritis, left shoulder; M19.011 Primary osteoarthritis, right shoulder; M16.0 Bilateral primary osteoarthritis of hip; M17.0 Bilateral primary osteoarthritis of knee; Z17.0 Estrogen receptor positive status [ER+]; M47.812 Spondylosis without myelopathy or radiculopathy, cervical region; M47.816 Spondylosis without myelopathy or radiculopathy, lumbar region; Z79.1 Long term (current) use of non-steroidal anti-inflammatories (NSAID); Z79.899 Other long term (current) drug therapy; Z71.89 Other specified counseling | CPT/HCPCS: 99350 ==